=== PATIENT | male | born 1975 | race Caucasian/White ===

== ENCOUNTER → 2016-08-29 | Outpatient (CLI) | payer MEDICARE, OTHER ==
--- NOTE | 2016-08-29 15:32 | PN ---
This is a 41-year-old male patient with known history of obstructive sleep apnea coming in for a follow-up. The patient was diagnosed having severe CHARITO with an AHI of 47 and currently he is on CPAP pressure of 11 cm of water. He is doing well. His compliance for most of the time with exception of certain nights where he falls asleep while watching TV in the living room and he fails to put on his CPAP machine. I reviewed his compliance data over the past 180 days. Days with the device usages is 149, days without the device usage is 31 and percent days with device usage is 82%. He is averaging around 5 hours and 43 minutes of CPAP use every the night. CPAP use for more than 4 hours is 65%. He is using a nose mask. He is still somewhat sleepy during the day and he is on Provigil. [place] score today is 17. No recent weight gain or weight loss. No seizure activity has been noted. No other complaints otherwise. Current vitals: His blood pressure is 117/73, pulse 88, respirations 16, weight is 236. GENERAL APPEARANCE: Calm, comfortable. No acute distress. HEENT: Mallampati class IV. There is no goiter, neck masses. LUNGS: Clear to auscultation. HEART: Heart sounds are regular rate and rhythm. Normal S1, S2. ABDOMEN: Soft, nontender. No organomegaly. EXTREMITIES: No edema. No cyanosis or clubbing. IMPRESSION: 1. Sleep apnea, a combination of obstructive and central, maintained on a CPAP pressure of 11 cm of water, baseline apnea-hypopnea index is at 47. 2. Hypersomnia secondary to above treated with CPAP therapy and Provigil. 3. Obesity. 4. Epilepsy. 5. Cerebral palsy. PLAN: Will ask the patient to become more compliant with CPAP therapy. I would like to see him using his CPAP more than 4 hours for most of the time. His percentage for CPAP use for more than 4 hours at 65% at this point and would like to see this value going up to 80 or 90%. Encourage weight loss and maintaining good sleep hygiene measures. Refilled his CPAP supplies and see me back in a year's time in follow-up.
== END | disposition home or self-care (01) ==
LOC: SLEEP 11:30
PROVIDERS: ATTEND Internal Medicine Critical Care Medicine

== ENCOUNTER → 2016-10-30 | Outpatient (CLI) | payer MEDICARE, OTHER ==
--- NOTE | 2016-10-30 13:37 | MR ---
MR lumbar spine wo con dorsalgia, pain in lower back Multiplanar, multiecho imaging of the lumbar spine was obtained without contrast on a 3 Inna magnet. REFERENCE:None. FINDINGS: There is an 7 mm high signal lesion on T2 weighted imaging in the lower pole of the left h ip. Paraspinal soft tissues are otherwise normal. There is a mild retrograde listhesis of L4 on L5. Bony alignment is otherwise normal. Cord signal is normal. The conus ends normally at the level of the mid body of L1. At T12-L1, no definite abnormality is seen. At L1-2, there is mild hypertrophic change and capsulitis within the facets. At L2-3, there is mild hypertrophic change and capsulitis within the facets. At L3-4, there is a minimal, diffuse disc displacement. Intervertebral foramina are well maintained. There is mild hypertrophic change and capsulitis within the facets. At L4-5, there is a retrograde listhesis of L4-L5. There is a broad-based disc displacement superimpo sed upon a pseudodisc. The intervertebral foramina are well maintained. There is hypertrophic change and capsulitis within the facets. At L5-S1, there is mild hypertrophic changes within the facets. IMPRESSION: 1. MILD, DIFFUSE FACET ARTHROPATHY. 2. DEGENERATIVE DISC DISEASE, L4-5. 3. NO SIGNIFICANT COMPRESSIVE DISCOPATHY OR NEURAL COMPRESSION.
== END | disposition home or self-care (01) ==
LOC: RADMRIMAIN 12:01
PROVIDERS: ATTEND Family Medicine
DX: M51.36 Other intervertebral disc degeneration, lumbar region (principal); M46.96 Unspecified inflammatory spondylopathy, lumbar region
CPT/HCPCS: 72148

== ENCOUNTER → 2017-01-09 | Outpatient (CLI) | payer MEDICARE, OTHER ==
--- NOTE | 2017-01-10 07:44 | PN ---
This patient is doing well, coming in for a compliancy check regarding obstructive sleep apnea. He was an AHI of 47. He is on CPAP pressure 11 cm water. Takes Provigil 200 mg for residual hypersomnia on a daily basis. Doing well. No specific complaints. I noticed a drop in his overall CPAP average use time and he is down to 4 hours and 4 minutes over the past 30 days. He needs to be a bit more compliant. Provigil needs to be renewed. He is using a nose mask. He is still essentially the same with some degree of sleepiness during the day. His current [place] score is at 7. No other new complaints otherwise for now. BP is 120/78. Pulse 72. Respiratory rate 16. Temperature 97.7. BMI 37.2, weight 238. Height is 5 feet 7 inches. General appearance, calm, comfortable. HEENT: Negative for JVD, no goiter. No neck masses. Lungs clear to auscultation. Heart sounds regular rate and rhythm. Normal S1, S2. No S3, no murmurs. Abdomen soft. Nontender. No organomegaly. Extremities no cyanosis, clubbing or edema. IMPRESSION: 1. Obstructive sleep apnea, combination of obstructive and central, ( ) level, based on AHI of 47. The patient is on good treatment although he needs to improve his compliance and his average CPAP use. 2. Hypersomnia, currently on CPAP and the patient takes Provigil for residual hypersomnia that occurs during the day. 3. Epilepsy. 4. Cerebral palsy. 5. Obesity. PLAN: 1. Encourage weight loss. 2. Proceed with the same CPAP at same level of pressure which is 11 cm water. 3. Proceed with Provigil 200 mg po daily and this will be renewed. We will continue to follow [facility]
== END ==
LOC: SLEEP 15:04
PROVIDERS: ATTEND Internal Medicine Critical Care Medicine
DX: G47.33 Obstructive sleep apnea (adult) (pediatric) (principal); G47.10 Hypersomnia, unspecified; E66.9 Obesity, unspecified; G40.909 Epilepsy, unspecified, not intractable, without status epilepticus; G80.9 Cerebral palsy, unspecified

== ENCOUNTER 2017-05-29 09:25 | Emergency (ER) | payer MEDICARE, OTHER ==
[2017-05-29 09:38] VITALS: RESP 18
--- NOTE | 2017-05-29 10:18 | ED ---
General Adult HPI - General Chief complaint: Neuro Symptoms/Deficit Stated complaint: Legs are weak Time Seen by Provider: 05/29/17 09:40 Source: patient, family, RN notes reviewed, old records reviewed Mode of arrival: wheelchair Limitations: no limitations - History of Present Illness Initial comments: 41-year-old male history of cerebral palsy, epilepsy status post craniotomy, and sleep apnea presents with acute onset bilateral lower extremity weakness. Symptoms began at approximately 8 AM while patient was exiting a vehicle, denies trauma. Patient lowered himself back into the vehicle, there was no injury. Patient does have residual left-sided weakness from his cerebral palsy. He has contracture of the left upper extremity. Patient normally is able to ambulate. Symptoms of weakness are present in both lower extremities. Denies any recent medication changes. Patient denies current chest pain or shortness of breath. Denies headache. Denies lightheadedness or dizziness. Denies fever or chills. Denies back pain. Denies bowel or bladder incontinence. - Related Data Home Medications Medication Instructions Recorded Confirmed Doxycycline Hyclate [Vibramycin] 100 mg PO BID 02/16/15 05/29/17 Omeprazole 40 mg PO AC-BRKFST 02/16/15 05/29/17 Sertraline HCl [Zoloft] 200 mg PO HS 02/16/15 05/29/17 lamoTRIgine [LaMICtal] 400 mg PO BID 02/16/15 05/29/17 Ferrous Sulfate [Feosol] 325 mg PO DAILY 05/29/17 05/29/17 HYDROcodone/APAP 5-325MG [[place] 1 tab PO Q6HR PRN 05/29/17 05/29/17 5-325] Ketoconazole 2% Shampoo [Nizoral] 1 applic TOPICAL HS 05/29/17 05/29/17 Lacosamide [Vimpat] 150 mg PO BID 05/29/17 05/29/17 Modafinil [Provigil] 100 mg PO BID 05/29/17 05/29/17 Mupirocin [Mupirocin 2%] 1 applic TOPICAL DAILY 05/29/17 05/29/17 Triamcinolone 0.1% Lotion [Kenalog 1 applic TOPICAL BID 05/29/17 05/29/17 0.1% Lotion] Allergies Allergy/AdvReac Type Severity Reaction Status Date / Time vancomycin Allergy Rash/Hives Verified 05/29/17 10:04 meclizine HCl [From Antivert] AdvReac SEIZURE Verified 05/29/17 10:04 naproxen [From Naprosyn] AdvReac SEIZURE Verified 05/29/17 10:04 Review of Systems ROS Statement: Those systems with pertinent positive or pertinent negative responses have been documented in the HPI. ROS Other: All systems not noted in ROS Statement are negative. Past Medical History Past Medical History: Seizure Disorder, Sleep Apnea/CPAP/BIPAP Additional Past Medical History / Comment(s): CP History of Any Multi-Drug Resistant Organisms: None Reported Past Surgical History: Hernia Repair Past Psychological History: No Psychological Hx Reported Smoking Status: Never smoker Past Alcohol Use History: None Reported Past Drug Use History: None Reported General Exam Limitations: no limitations General appearance: alert, in no apparent distress Head exam: Present: normocephalic, other (Right-sided parietal craniotomy.) Eye exam: Present: normal appearance, PERRL, EOMI ENT exam: Present: normal exam Neck exam: Present: normal inspection, tenderness Respiratory exam: Present: normal lung sounds bilaterally. Absent: respiratory distress Cardiovascular Exam: Present: regular rate, normal rhythm GI/Abdominal exam: Present: soft, distended. Absent: tenderness, guarding Rectal exam: Present: normal inspection, normal rectal tone Extremities exam: Present: other (Left lower extremity, with muscle wasting, bilateral distal pulses intact, patient is able to move both feet, unable to lift either lower extremity against gravity. Reflexes are 2+ and symmetric. Sensation Intact. ). Absent: tenderness, pedal edema, joint swelling Back exam: Present: normal inspection. Absent: tenderness, vertebral tenderness Neurological exam: Present: alert, oriented X3, other (Bilateral lower extremity weakness, unable to resist gravity in either lower extremities. ) Psychiatric exam: Present: normal affect, normal mood Skin exam: Present: warm, dry, intact. Absent: cyanosis, diaphoretic Course Vital Signs 05/29/17 05/29/17 05/29/17 09:34 09:58 11:00 Temperature 98.3 F Pulse Rate 92 88 88 Respiratory 18 18 18 Rate Blood Pressure 117/79 126/66 128/73 O2 Sat by Pulse 94 L 98 96 Oximetry 05/29/17 05/29/17 11:28 12:20 Temperature Pulse Rate 77 74 Respiratory 18 18 Rate Blood Pressure 120/74 122/75 O2 Sat by Pulse 98 98 Oximetry - Reevaluation(s) Reevaluation #1: 05/29/17 12:59 Emergency Department patient does have some improvement in his symptoms, he is able to minimally elevated bilateral lower extremities. EKG Findings - EKG Comments: EKG Findings:: EKG shows normal sinus rhythm, ventricular rate 93, FL 178, castration 12, QTC 467 no signs of ischemia or arrhythmia Medical Decision Making - Medical Decision Making 41-year-old male with history cerebral palsy and residual left-sided deficits presents for evaluation of bilateral lower extremity weakness. On exam patient is unable to lift either lower extremity off the bed, sensation appears intact, reflexes at the patella are 2+ bilaterally, no rectal tone intact. Symptoms began at approximately 8 AM this morning. Head CT is obtained, this is negative for acute intracranial process, there is right-sided stable encephalomalacia. Chest x-ray shows no acute findings. CBC is unremarkable including normal white blood cell count, hemoglobin stable. CMP and troponin are all unremarkable. Case is discussed with the patient's neurologist at [facility] Dr. Randhawa, history and exam concerning for spinal cord pathology. He recommends protocol cord imaging. Exam and history discussed with neurology on-call at [facility] Dr. Villatoro, he agrees is likely spinal cord issue, recommends Solu- Medrol and transfer for neurology and neurosurgery evaluation. Given the patient's neurologist practices at [facility], patient will be transferred for further neurology and possible neurosurgical evaluation. Diagnosis: Bilateral lower extremity weakness, concern for spinal cord pathology including spinal cord infarction versus transverse myelitis. - Lab Data Result diagrams: 05/29/17 09:57 05/29/17 09:57 Lab Results 05/29/17 05/29/17 05/29/17 Range/Units 09:57 09:57 09:57 WBC 6.0 (3.8-10.6) k/uL RBC 5.19 (4.30-5.90) m/uL Hgb 14.0 (13.0-17.5) gm/dL Hct 44.0 (39.0-53.0) % MCV 84.7 (80.0-100.0) fL MCH 27.1 (25.0-35.0) pg MCHC 31.9 (31.0-37.0) g/dL RDW 15.4 (11.5-15.5) % Plt Count 182 (150-450) k/uL Neutrophils % 77 % Lymphocytes % 16 % Monocytes % 3 % Eosinophils % 2 % Basophils % 1 % Neutrophils # 4.6 (1.3-7.7) k/uL Lymphocytes # 1.0 (1.0-4.8) k/uL Monocytes # 0.2 (0-1.0) k/uL Eosinophils # 0.1 (0-0.7) k/uL Basophils # 0.0 (0-0.2) k/uL PT (9.0-12.0) sec INR (<1.2) APTT (22.0-30.0) sec Sodium 141 (137-145) mmol/L Potassium 3.8 (3.5-5.1) mmol/L Chloride 105 (98-107) mmol/L Carbon Dioxide 25 (22-30) mmol/L Anion Gap 11 mmol/L BUN 12 (9-20) mg/dL Creatinine 0.93 (0.66-1.25) mg/dL Est GFR (MDRD) Af Amer >60 (>60 ml/min/1.73 sqM) Est GFR (MDRD) Non-Af >60 (>60 ml/min/1.73 sqM) Glucose 124 H (74-99) mg/dL Calcium 9.6 (8.4-10.2) mg/dL Total Bilirubin 0.4 (0.2-1.3) mg/dL AST 18 (17-59) U/L ALT 31 (21-72) U/L Alkaline Phosphatase 64 (38-126) U/L Total Creatine Kinase 47 L (55-170) U/L CK-MB (CK-2) 0.8 (0.0-2.4) ng/mL CK-MB (CK-2) Rel Index 1.7 Troponin I <0.012 (0.000-0.034) ng/mL Total Protein 7.0 (6.3-8.2) g/dL Albumin 4.3 (3.5-5.0) g/dL 05/29/17 Range/Units 09:57 WBC (3.8-10.6) k/uL RBC (4.30-5.90) m/uL Hgb (13.0-17.5) gm/dL Hct (39.0-53.0) % MCV (80.0-100.0) fL MCH (25.0-35.0) pg MCHC (31.0-37.0) g/dL RDW (11.5-15.5) % Plt Count (150-450) k/uL Neutrophils % % Lymphocytes % % Monocytes % % Eosinophils % % Basophils % % Neutrophils # (1.3-7.7) k/uL Lymphocytes # (1.0-4.8) k/uL Monocytes # (0-1.0) k/uL Eosinophils # (0-0.7) k/uL Basophils # (0-0.2) k/uL PT 10.4 (9.0-12.0) sec INR 1.1 (<1.2) APTT 22.0 (22.0-30.0) sec Sodium (137-145) mmol/L Potassium (3.5-5.1) mmol/L Chloride (98-107) mmol/L Carbon Dioxide (22-30) mmol/L Anion Gap mmol/L BUN (9-20) mg/dL Creatinine (0.66-1.25) mg/dL Est GFR (MDRD) Af Amer (>60 ml/min/1.73 sqM) Est GFR (MDRD) Non-Af (>60 ml/min/1.73 sqM) Glucose (74-99) mg/dL Calcium (8.4-10.2) mg/dL Total Bilirubin (0.2-1.3) mg/dL AST (17-59) U/L ALT (21-72) U/L Alkaline Phosphatase (38-126) U/L Total Creatine Kinase (55-170) U/L CK-MB (CK-2) (0.0-2.4) ng/mL CK-MB (CK-2) Rel Index Troponin I (0.000-0.034) ng/mL Total Protein (6.3-8.2) g/dL Albumin (3.5-5.0) g/dL Critical Care Time Critical Care Time: Yes Total Critical Care Time: 35 Disposition Clinical Impression: Bilateral leg weakness Disposition: OTHER INSTITUTION NOT DEFINED Condition: Serious Referrals: Jose Enciso MD [Primary Care Provider] - 1-2 days Time of Disposition: 13:06 - Out of Hospital Transfer - Req. Specs Out of Hospital Transfer - Requested Specifics: Other Non-Acute (Transfer to [facility] accepting physician Dr. Montano)
[2017-05-29 10:30] LABS: Basophils % (A) 1 %; CH 28.5; CHCM 33.8; Eosinophils # (A) 0.1 k/uL (0-0.7); Eosinophils % (A) 2 %; HDW 2.75; Luc # (Auto) 0.03; Luc % (Auto) 1; Lymphocytes % (A) 16 %; MCH 27.1 pg (25.0-35.0); MCHC 31.9 g/dL (31.0-37.0); MCV 84.7 fL (80.0-100.0); Mean Platelet Volume 7.2; Monocytes # (A) 0.2 k/uL (0-1.0); Monocytes % (A) 3 %; Neutrophils # (A) 4.6 k/uL (1.3-7.7); Neutrophils % (A) 77 %; RBC 5.19 m/uL (4.30-5.90); RDW 15.4 % (11.5-15.5); WBC (Perox) 6.15
[2017-05-29 10:46] LABS: ALT 31 U/L (21-72); AST 18 U/L (17-59); Alkaline Phosphatase 64 U/L (38-126); Anion Gap 11 mmol/L; Blood Urea Nitrogen 12 mg/dL (9-20); Calcium 9.6 mg/dL (8.4-10.2); Carbon Dioxide 25 mmol/L (22-30); Chloride 105 mmol/L (98-107); Glucose 124 mg/dL (74-99); INR 1.1 (<1.2); Non-African American GFR(MDRD) >60 (>60 ml/min/1.73 sqM); Potassium 3.8 mmol/L (3.5-5.1); Prothrombin Time 10.4 sec (9.0-12.0); Sodium 141 mmol/L (137-145); Total Bilirubin 0.4 mg/dL (0.2-1.3)
--- NOTE | 2017-05-29 10:50 | XR ---
EXAMINATION TYPE: XR chest 2V DATE OF EXAM: 05/29/2017 COMPARISON: 02/16/2015 HISTORY: Chest pain TECHNIQUE: Frontal and lateral views of the chest are obtained. FINDINGS: There is no focal air space opacity. No evidence for pneumothorax. No pleural effusion. The cardiac silhouette size is within normal limits. The osseous structures are grossly intact. IMPRESSION: 1. No acute cardiopulmonary process.
--- NOTE | 2017-05-29 10:56 | CT ---
EXAMINATION TYPE: CT brain wo con DATE OF EXAM: 05/29/2017 COMPARISON: 02/16/2015 INDICATION: Bilateral leg weakness. History of epilepsy DLP: 1047.1 mGycm, Automated exposure control for dose reduction was used. CONTRAST: None CT of the brain is performed utilizing 3 mm thick sections through the posterior fossa and 3 mm thick sections through the remaining calvarium. Study is performed within 24 hours of arrival to the hosp ital. No abnormal hyperdensity is present to suggest an acute intracranial hemorrhage. No mass lesion is evident. No acute infarcts are evident. There is mucosal thickening within the right frontal sinus. Some anterior right ethmoid air cell muco cornelius thickening is present. Some scattered areas of mucosal thickening is within the mid posterior rig ht ethmoid air cells. Sphenoid sinuses are clear. Maxillary sinuses within the [id number] are cedric r. Craniotomy defect along the right temporal parietal region. Ex vacuo effect is evident. There is ence phalomalacia on the right. There is prominence of the ventricles with mild shift towards the right du e to exvacuo effect. Hydrocephalus is not evident. Sulci appear appropriate for the patient age. Find ings are stable from 2015 IMPRESSIONS: 1. Stable right encephalomalacia and postsurgical change.
[2017-05-29 10:58] LABS: Creatine Kinase 47 U/L (55-170)
[2017-05-29 11:12] LABS: Creatine Kinase MB 0.8 ng/mL (0.0-2.4); Troponin I <0.012 ng/mL (0.000-0.034)
[2017-05-29] MEDS ORDERED: methylPREDNISolone SOD SUCCI 125 MG/2 ML VIAL IV STA (12:41)
[2017-05-29 13:32] VITALS: BP 132/72; PULSE 83; TEMP 98.6
== END 2017-05-29 13:38 | disposition other institution (70) ==
LOC: EC 09:25
DX: R53.1 Weakness (principal); G47.30 Sleep apnea, unspecified; Z99.89 Dependence on other enabling machines and devices; Z98.890 Other specified postprocedural states; Z79.899 Other long term (current) drug therapy; Z88.1 Allergy status to other antibiotic agents; Z88.6 Allergy status to analgesic agent; Z88.8 Allergy status to other drugs, medicaments and biological substances; Z86.69 Personal history of other diseases of the nervous system and sense organs
CPT/HCPCS: 36415; 93005; 80053; 82550; 82553; 84484; 85025; 85610; 85730; 71020; 70450; 99291; 96374; J2930

== ENCOUNTER → 2017-08-21 | Outpatient (CLI) | payer MEDICARE, OTHER ==
--- NOTE | 2017-08-21 15:34 | PN ---
PROGRESS NOTE This is a 42-year-old male patient is being seen [facility] for a followup regarding obstructive sleep apnea. The patient is currently on CPAP pressure of 11 cm of water. He has severe CHARITO with an AHI of 47. He also takes Provigil 200 mg for residual hypersomnia sleep despite being compliant with CPAP therapy. During his last visit I saw the patient's compliance was gradually getting worse and I insisted on him wearing his CPAP every night for longer number of hours. I came to understand his interim history is positive for an episode of weakness in lower extremities for which the patient came to [facility] and following that, he was taken to [facility] and was diagnosed having a TIA. CT scan of the brain showed old CVA and CT angio of the brain showed evidence of encephalomalacia and occlusion of the artery is within the right cerebral hemisphere which was chronic. No acute findings were identified. The patient did not have any seizure and he was discharged home. During this time, he was not wearing his CPAP machine. Now that he is back home he is back using his CPAP and is averaging around 4 hours and 42 minutes of CPAP use every night. He has a Mirage FX nose mask. He is doing well on the treatment. His [place] score is down to 7. No recent weight gain or weight loss. Denies waking up in the middle of night for snoring or any apneic episodes. He is taking also Provigil 200 mg in the morning which assists him with his alertness and he has taken much less naps while on this treatment. REVIEW OF SYSTEMS: Constitution is chronic hypersomnia which is improved. Obesity without any history of weight gain or weight loss. History of cerebral palsy and previous history of CVA. No history of any active seizure. No headaches. No altered mentation. No chest pain. No palpitations. No cough, sputum production, chest tightness, SOB. No exertional dyspnea. No nausea, vomiting or diarrhea or heartburn. No palpitations. No joint aches or pains for now. No falls, no skeletal injuries. No skin rash. No ulcerations or wounds. No anxiety or depression. PHYSICAL EXAMINATION: BP is 123/78, pulse is 89, respirations 16, temperature 98.5, saturation 94% on room air and weight is 245. BMI 37.6. [place] score is 14. GENERAL APPEARANCE: Obese, calm, comfortable. HEAD: Atraumatic, normocephalic. NECK: Supple. No JVD. No goiter or neck mass. Mallampati class IV. LUNGS: Diminished breath sounds bilaterally, otherwise clear. HEART: Sounds are regular. Positive S1, S2. No S3, S4. No murmurs. ABDOMEN: Soft, nontender. No organomegaly. EXTREMITIES: No edema. No cyanosis. No clubbing. NEUROLOGIC: The patient is alert and oriented x3. He has obvious weakness on the left related to a previous CVA. Some degree of facial asymmetry which is also chronic. SKIN: Negative for any wounds, ulcerations or any cyanosis. IMPRESSION: 1. Obstructive sleep apnea severe with an AHI of 47, currently on CPAP pressure of 11. 2. Hypersomnia improved with CPAP therapy and Provigil. 3. There is improved compliancy on CPAP treatment. 4. Cerebral palsy. 5. Epilepsy. 6. Obesity with a current BMI of 37.6. PLAN: 1. Encourage weight loss. 2. Refill Provigil. 3. Continue CPAP pressure of 11. 4. Keep the patient on Mirage FX nose mask. 5. Tight control of cardiovascular risk factors. 6. Compliance is improved. We will continue to follow. MMODL / IJN: [id number] /
== END ==
LOC: SLEEP 13:23
PROVIDERS: ATTEND Internal Medicine Critical Care Medicine
DX: G47.33 Obstructive sleep apnea (adult) (pediatric) (principal); G47.10 Hypersomnia, unspecified; G80.9 Cerebral palsy, unspecified; G40.909 Epilepsy, unspecified, not intractable, without status epilepticus; E66.9 Obesity, unspecified; Z68.37 Body mass index [BMI] 37.0-37.9, adult; Z99.89 Dependence on other enabling machines and devices; Z79.899 Other long term (current) drug therapy

== ENCOUNTER 2018-04-27 16:00 | Inpatient (IN) | payer MEDICARE, OTHER ==
--- NOTE | 2018-04-27 16:17 | ED ---
General Adult HPI - General Stated complaint: Seizure Time Seen by Provider: 04/27/18 16:01 Source: patient, family, EMS, RN notes reviewed, old records reviewed Mode of arrival: EMS Limitations: no limitations - History of Present Illness Initial comments: Patient is a pleasant 42-year-old male presenting to the emergency department with family for concern for weakness and seizure. Patient does have history of cerebral palsy and severe epilepsy. Patient had 37% of the right side of his brain removed for 5 years ago. Patient rarely gets seizures now. Last seizure was February. Patient did have a seizure prior to arrival today with tonic- clonic activity limited to the left side. Patient states this lasted around 3 minutes. Patient did have some odd sensation to his left side following this. Patient has also noticed some weakness on his left side. Patient states he does have normally have some left arm weakness however this is worse than normal. - Related Data Home Medications Medication Instructions Recorded Confirmed Doxycycline Hyclate [Vibramycin] 100 mg PO BID 02/16/15 04/27/18 Omeprazole 40 mg PO AC-BRKFST 02/16/15 04/27/18 Sertraline HCl [Zoloft] 200 mg PO HS 02/16/15 04/27/18 lamoTRIgine [LaMICtal] 400 mg PO BID 02/16/15 04/27/18 HYDROcodone/APAP 5-325MG [[place] 1 tab PO DAILY PRN 05/29/17 04/27/18 5-325] Lacosamide [Vimpat] 150 mg PO BID 05/29/17 04/27/18 Modafinil [Provigil] 200 mg PO BID 05/29/17 04/27/18 Triamcinolone 0.1% Lotion [Kenalog 1 applic TOPICAL BID 05/29/17 04/27/18 0.1% Lotion] Allergies Allergy/AdvReac Type Severity Reaction Status Date / Time vancomycin Allergy Rash/Hives Verified 04/27/18 16:06 meclizine HCl [From Antivert] AdvReac SEIZURE Verified 04/27/18 16:06 naproxen [From Naprosyn] AdvReac SEIZURE Verified 04/27/18 16:06 Review of Systems ROS Statement: Those systems with pertinent positive or pertinent negative responses have been documented in the HPI. ROS Other: All systems not noted in ROS Statement are negative. Constitutional: Denies: fever Eyes: Denies: eye pain ENT: Denies: ear pain Respiratory: Denies: cough Cardiovascular: Denies: chest pain Endocrine: Denies: fatigue Gastrointestinal: Denies: abdominal pain Genitourinary: Denies: dysuria Musculoskeletal: Denies: back pain Skin: Denies: rash Neurological: Denies: headache Past Medical History Past Medical History: Seizure Disorder, Sleep Apnea/CPAP/BIPAP Additional Past Medical History / Comment(s): CP History of Any Multi-Drug Resistant Organisms: None Reported Past Surgical History: Hernia Repair Past Psychological History: No Psychological Hx Reported Smoking Status: Never smoker Past Alcohol Use History: None Reported Past Drug Use History: None Reported General Exam Limitations: physical limitation General appearance: alert, in no apparent distress Head exam: Present: atraumatic Eye exam: Present: normal appearance, PERRL, EOMI ENT exam: Present: normal oropharynx Neck exam: Present: normal inspection Respiratory exam: Present: normal lung sounds bilaterally Cardiovascular Exam: Present: regular rate, normal rhythm GI/Abdominal exam: Present: soft. Absent: tenderness Extremities exam: Present: normal inspection. Absent: pedal edema, calf tenderness Neurological exam: Present: alert, oriented X3, CN II-XII intact Expanded Neurological exam: Present: protecting the airway Patient oriented to: Present: person, place, time Cranial nerves: EOM's Intact: Normal, Facial Sensation: Normal Sensory exam: Upper Extremity Light Touch: Normal, Lower Extremity Light Touch: Normal Motor strength exam: RUE: 5, LUE: 2/1, RLE: 4, LLE: 3 Eye Response: (4) open spontaneously Motor Response: (6) obeys commands Verbal Response: (5) oriented Psychiatric exam: Present: normal affect, normal mood Skin exam: Present: normal color Course Vital Signs 04/27/18 16:06 Temperature 98.6 F Pulse Rate 87 Respiratory 20 Rate Blood Pressure 132/83 O2 Sat by Pulse 96 Oximetry EKG Findings - EKG Comments: EKG Findings:: Normal sinus rhythm 78. ND 170. QRS 96. QT 388. QTC 442. Normal axis. Normal QRS. No acute ST change. Medical Decision Making - Medical Decision Making Neural interventional list did call back and does not patient is a candidate for TPA. Patient reevaluated and updated. Case discussed in detail with Dr. Perez, who will admit for Dr. Enciso. - Lab Data Result diagrams: 04/27/18 16:24 04/27/18 16:24 Lab Results 04/27/18 04/27/18 04/27/18 Range/Units 16:24 16:24 16:24 WBC 6.0 (3.8-10.6) k/uL RBC 5.30 (4.30-5.90) m/uL Hgb 14.4 (13.0-17.5) gm/dL Hct 43.6 (39.0-53.0) % MCV 82.3 (80.0-100.0) fL MCH 27.2 (25.0-35.0) pg MCHC 33.0 (31.0-37.0) g/dL RDW 13.8 (11.5-15.5) % Plt Count 177 (150-450) k/uL Neutrophils % 75 % Lymphocytes % 17 % Monocytes % 4 % Eosinophils % 2 % Basophils % 1 % Neutrophils # 4.4 (1.3-7.7) k/uL Lymphocytes # 1.0 (1.0-4.8) k/uL Monocytes # 0.3 (0-1.0) k/uL Eosinophils # 0.1 (0-0.7) k/uL Basophils # 0.0 (0-0.2) k/uL Sodium 141 (137-145) mmol/L Potassium 4.4 (3.5-5.1) mmol/L Chloride 108 H (98-107) mmol/L Carbon Dioxide 21 L (22-30) mmol/L Anion Gap 12 mmol/L BUN 16 (9-20) mg/dL Creatinine 0.94 (0.66-1.25) mg/dL Est GFR (CKD-EPI)AfAm >90 (>60 ml/min/1.73 sqM) Est GFR (CKD-EPI)NonAf >90 (>60 ml/min/1.73 sqM) Glucose 95 (74-99) mg/dL Calcium 9.3 (8.4-10.2) mg/dL Total Bilirubin 0.5 (0.2-1.3) mg/dL AST 18 (17-59) U/L ALT 18 L (21-72) U/L Alkaline Phosphatase 58 (38-126) U/L Total Creatine Kinase 30 L (55-170) U/L Total Protein 7.2 (6.3-8.2) g/dL Albumin 4.5 (3.5-5.0) g/dL - Radiology Data Radiology results: report reviewed (Computed tomography scan of the brain reveals chronic right-sided changes without acute intercranial process.) Disposition Clinical Impression: Left-sided weakness Disposition: ADMITTED IP TO THIS HOSP Is patient prescribed a controlled substance at d/c from ED?: No Referrals: Jose Enciso MD [Primary Care Provider] - 1-2 days Decision Time: 16:58
[2018-04-27 16:41] LABS: Basophils % (A) 1 %; Eosinophils # (A) 0.1 k/uL (0-0.7); Eosinophils % (A) 2 %; HCT 43.6 % (39.0-53.0); HGB 14.4 gm/dL (13.0-17.5); Lymphocytes % (A) 17 %; MCH 27.2 pg (25.0-35.0); MCV 82.3 fL (80.0-100.0); Mean Platelet Volume 6.7; Monocytes # (A) 0.3 k/uL (0-1.0); Monocytes % (A) 4 %; Neutrophils # (A) 4.4 k/uL (1.3-7.7); Neutrophils % (A) 75 %; Platelet Count 177 k/uL (150-450); RDW 13.8 % (11.5-15.5)
[2018-04-27 16:50] LABS: Creatine Kinase 30 U/L (55-170)
--- NOTE | 2018-04-27 16:51 | CT ---
EXAMINATION TYPE: CT brain wo con for TPA DATE OF EXAM: 04/27/2018 COMPARISON: 05/29/2017 HISTORY: History of cerebral palsy and seizures. Unable to move left arm or leg after seizure. CT DLP: 1177 mGycm Automated exposure control for dose reduction was used. FINDINGS: Again there is a craniotomy defect along the right temporal parietal region with near complete enceph alomalacia of the right hemisphere with only portions of the right temporal lobe and cranial frontal parietal region preserved. The degree of midline shift is unchanged from the prior, left to right, du e to volume loss of the right hemisphere. Ventricular system on the right is severely dilated and ill -defined. Left-sided ventricular system is similar to the prior. Left cerebral hemisphere and infrate ntorial are stable in comparison to the prior. No acute intracranial hemorrhage seen. Moderate mucosal thickening of the ethmoid sinuses and within the frontal sinuses are seen. Remaining paranasal sinuses and mastoid air cells are well aerated. IMPRESSION: Extensive encephalomalacia and ex vacuo dilatation of the right lateral ventricle with [id number] midline shift due to volume loss is unchanged from the exam of 05/29/2017. No acute intracranial proc ess or intracranial hemorrhage.
[2018-04-27 16:52] LABS: ALT 18 U/L (21-72); AST 18 U/L (17-59); Albumin 4.5 g/dL (3.5-5.0); Alkaline Phosphatase 58 U/L (38-126); Anion Gap 12 mmol/L; Blood Urea Nitrogen 16 mg/dL (9-20); Calcium 9.3 mg/dL (8.4-10.2); Carbon Dioxide 21 mmol/L (22-30); Chloride 108 mmol/L (98-107); Glucose 95 mg/dL (74-99); Potassium 4.4 mmol/L (3.5-5.1); Sodium 141 mmol/L (137-145); Total Bilirubin 0.5 mg/dL (0.2-1.3); Total Protein 7.2 g/dL (6.3-8.2)
[2018-04-27] MEDS ORDERED: ASPIRIN 325 MG TAB PO STA (16:59)
[2018-04-27 17:02] LABS: Creatine Kinase MB 0.3 ng/mL (0.0-2.4); Troponin I <0.012 ng/mL (0.000-0.034)
[2018-04-27 17:06] LABS: INR 1.1 (<1.2); Partial Thromboplastin Time 25.9 sec (22.0-30.0); Prothrombin Time 10.4 sec (9.0-12.0)
[2018-04-27] MEDS: SODIUM CHLORIDE 0.9% 1,000 ML IV SCH (17:29)
--- NOTE | 2018-04-27 17:37 | CT ---
EXAMINATION TYPE: CT angio head neck DATE OF EXAM: 04/27/2018 HISTORY: History of cerebral palsy and seizures. Unable to move left arm or leg after seizure. COMPARISON: CT brain of the same date CT DLP: 499.3 mGycm. Automated Exposure Control for Dose Reduction was Utilized. TECHNIQUE: CTA scan of the neck is performed with IV Contrast, patient injected with 65 mL of Isovue 370, axial images are obtained, coronal and sagittal reformatted images are reviewed. Three-D recons tructed images are created on an independent workstation and reviewed. FINDINGS: Carotid/Vascular Structures: There is a normal variant bovine aortic arch. The common carotid arterie s and cervical portions of the internal carotid arteries are patent without hemodynamically significa nt stenosis. The vertebral arteries are also patent. Right vertebral artery is dominant. There is occlusion of the branch vessels of the right middle cerebral artery from prior infarct and r ight posterior cerebral artery as well as posterior communicating artery. On the left the posterior c irculation and left middle cerebral artery as well as left anterior cerebral artery and right anterio r cerebral artery are patent and unremarkable. No evidence of intracranial aneurysm. No evidence of d issection. Other: Visualized portion of the brain are discussed in the CT brain dictation of the same date. Inci dental note of an azygos fissure and lobe are seen. Groundglass opacities of the lung apices may be o n the basis of fluid overload, pneumonitis or atelectasis. The thyroid gland appears enlarged. There is straightening of the usual cervical lordosis and slight reversal. IMPRESSION: 1. Occlusion of the right posterior cerebral artery and branch vessels of the right middle cerebral a rtery are assumed to be chronic given the extensive right hemispheric encephalomalacia from prior inf arct. Right anterior cerebral artery and left intracranial circulation are unremarkable. No stenosis, occlusion or dissection of the vasculature of the neck. 2. Multifocal groundglass opacities in the lung apices may relate to fluid overload, pneumonitis or a telectasis.
--- NOTE | 2018-04-27 17:39 | XR ---
EXAMINATION TYPE: XR chest 2V DATE OF EXAM: 04/27/2018 COMPARISON: 05/29/2017 HISTORY: Seizure and left-sided weakness and altered mental status. TECHNIQUE: Frontal and lateral views of the chest are obtained. FINDINGS: There is no focal air space opacity, pleural effusion, or pneumothorax seen. The cardiac silhouette size is upper limits of normal. The osseous structures are intact. IMPRESSION: No acute cardiopulmonary process, unchanged from the prior.
[2018-04-27 19:52] VITALS: BMI 37.3
[2018-04-27] MEDS ORDERED: NON-FORMULARY DRUG (Acetaminophen [Tylenol Arthritis] 650 MG) PO PRN (19:54)
[2018-04-27] MEDS ORDERED: HYDROcodone/APAP 5-325MG 1 EACH TAB PO PRN (19:54)
[2018-04-27] MEDS ORDERED: LACTULOSE 20 GM/30 ML CUP PO PRN (19:55)
[2018-04-27] MEDS ORDERED: ACETAMINOPHEN TAB 325 MG TAB PO PRN (19:55)
[2018-04-27] MEDS ORDERED: ONDANSETRON 4 MG/2 ML VIAL IVP PRN (19:55)
[2018-04-27] MEDS ORDERED: MAGNESIUM HYDROXIDE 2,400 MG/10 ML CUP PO PRN (19:55)
[2018-04-27] MEDS ORDERED: NALOXONE 0.4 MG/ML 1 ML VIAL IV PRN (19:55)
[2018-04-27] MEDS ORDERED: MELATONIN 3 MG TABLET PO PRN (19:55)
[2018-04-27] MEDS ORDERED: CALCIUM CARBONATE 500 MG CHEWABLE PO PRN (19:55)
[2018-04-27] MEDS ORDERED: SERTRALINE 100 MG TAB PO SCH (21:00)
[2018-04-27] MEDS: DOXYCYCLINE 100 MG CAP PO SCH (21:01)
[2018-04-27] MEDS: LACOSAMIDE 150 MG TABLET PO SCH (21:02)
[2018-04-27] MEDS: lamoTRIgine 100 MG TAB PO SCH (21:02)
[2018-04-27] MEDS: TRIAMCINOLONE 0.1% CREAM 80 GM TUBE TOPICAL SCH (21:02)
--- NOTE | 2018-04-27 21:03 | HP ---
HISTORY AND PHYSICAL DATE OF ADMISSION AND SERVICE: 04/27/18 PRESENTING COMPLAINT: Seizure. HISTORY OF PRESENTING COMPLAINT: Pleasant 42-year-old patient follows with Dr. Enciso. Patient about 10 years ago underwent about 37% of his right brain resected for intractable seizures. The patient has done rather well since then, getting occasional seizures. The patient does follow up with seizure specialist out of [place]. The patient's last seizure was on January 09. The patient today had a seizure that lasted for about 3 minutes. Normally it affects left side of the body where the patient starts shaking. The patient is typically awake and able to tell the episode. The patient may have a prodrome typically coming. The patient is brought in for the same. The patient also follows with Dr. Sen for lumbar pain. The patient's mother is present at the bedside. The patient has some baseline residual weakness on the left side, primarily in the left arm. REVIEW OF SYSTEMS: CONSTITUTIONAL: None. HEENT: None. RESPIRATORY: None. CARDIOVASCULAR: None. GASTROINTESTINAL: None. GENITOURINARY: None. MUSCULOSKELETAL: None. DERMATOLOGICAL: None. HEMATOLOGICAL: None. LYMPHATIC: None. PSYCHIATRY: Slight depression. NEUROLOGICAL: As above. PAST MEDICAL HISTORY: Seizure disorder, obstructive sleep apnea, 37% of right brain resected for surgery, lumbar L3-L5 pain for which he follows with Dr. Sen. PAST SURGICAL HISTORY: See above and hernia repair. SOCIAL HISTORY: Lives by himself. No smoking, alcohol. Denies use of recreational drugs. FAMILY HISTORY: Reviewed; noncontributory to presentation. HOME MEDICATIONS: Tylenol Arthritis 650 mg p.o. b.i.d. p.r.n., Provigil 100 mg b.i.d., [place] 5 one tablet p.o. daily p.r.n., Lamictal 400 mg b.i.d., Kenalog 0.1% topical b.i.d., Zoloft 200 mg q.h.s., omeprazole 40 mg with breakfast, Vimpat 150 mg p.o. b.i.d., doxycycline 100 mg b.i.d. ALLERGIES: To VANCO, MECLIZINE, NAPROXEN. EXAMINATION: Afebrile, pulse 87, respirations 20, blood pressure 132/82, pulse ox 96% on room air. GENERAL APPEARANCE: Well-built, BMI 37.3. Lying in bed, awake. EYES: Pupils equal. Conjunctivae normal. HEENT: External appearance of nose and ears normal. Oral cavity normal. NECK: JVD not raised. Mass not palpable. RESPIRATORY: Effort normal. Lungs are clear. CARDIOVASCULAR: 1st and 2nd sounds normal. No edema. ABDOMEN: Soft, nontender. Liver and spleen not palpable. LYMPHATIC: No lymph node palpable in neck or axillae. PSYCHIATRY: Alert and oriented x3. Mood and affect normal. The patient is able to communicate. NEUROLOGICAL: Pupils equal. Minimal facial asymmetry. Power in the left arm is 3/5, power in the left leg is 4/5. INVESTIGATIONS: White count 6, hemoglobin 14.4, platelets 177. Potassium 4.4, BUN 16, creatinine 0.94. Troponin negative. EKG tracing personally reviewed by me shows normal sinus rhythm. Chest x-ray film, personally reviewed by me shows an expiratory film, some crowding of the vessels. No obvious infiltrate. CT angio shows occlusion of the branch vessels to the right middle cerebral artery from prior infarct and right posterior cerebral artery as well as postcricoid negative artery. Left-sided is okay. ASSESSMENT: 1. Left-sided focal seizures with a prior right cerebral surgery for intractable seizure and the patient is already on antiepileptic medications. 2. 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 3. Chronic left hemiparesis, primarily of the left upper extremity from prior right- sided brain surgery. 4. Obesity; BMI 37.3. 5. Chronic lumbar arthritis, L3-L5, follows with Dr. Sen. 6. Obstructive sleep apnea uses CPAP machine. 7. Patient uses Provigil to keep awake. PLAN: Patient is put on seizure precautions and pads. Neuro checks to be done. Home medications are resumed. Neurology was consulted. Care was discussed at length with the patient and mother. Questions were answered. The patient expressed that he just wishes to follow up with Dr. Sen upon discharge with whom he sees for his back pain. MMODL / IJN: [id number] /
[2018-04-27] MEDS: ENOXAPARIN 40 MG/0.4 ML SYRINGE SQ SCH (21:08)
[2018-04-28 03:10] LABS: Cholesterol 205 mg/dL (<200); HDL Cholesterol 27 mg/dL (40-60); LDL Cholesterol,Calculated 143 mg/dL (0-99); Triglycerides 176 mg/dL (<150)
[2018-04-28] MEDS: SODIUM CHLORIDE 0.9% 1,000 ML IV SCH ×2 (03:10→11:32)
[2018-04-28] MEDS ORDERED: MODAFINIL 100 MG TAB PO SCH (06:00)
[2018-04-28] MEDS ORDERED: PANTOPRAZOLE 40 MG TABLET PO SCH (07:30)
[2018-04-28 07:59] VITALS: RESP 16
[2018-04-28] MEDS ORDERED: ASPIRIN 325 MG TAB PO SCH (09:00)
[2018-04-28] MEDS: LACOSAMIDE 150 MG TABLET PO SCH (09:29)
[2018-04-28] MEDS: lamoTRIgine 100 MG TAB PO SCH (09:29)
[2018-04-28] MEDS: TRIAMCINOLONE 0.1% CREAM 80 GM TUBE TOPICAL SCH (09:29)
[2018-04-28] MEDS: DOXYCYCLINE 100 MG CAP PO SCH (09:29)
[2018-04-28] MEDS: ENOXAPARIN 40 MG/0.4 ML SYRINGE SQ SCH (09:29)
--- NOTE | 2018-04-28 15:22 | P.CNNES ---
History of Present Illness Consult date: 04/28/18 Requesting physician: Hi Perez Reason for Consult: Weakness History of Present Illness: Patient is a pleasant 42-year-old male who is being evaluated by the neurology service on 04/28/2018 per the request of Dr. Perez for weakness. Patient has a significant seizure history for which he had undergone surgery and had 37% of his right brain resected for intractable seizures. The patient does follow with neurologist that is out of town, Dr. Alvarez. Patient states his last seizure prior to this admission was in January. Prior to January it had been 5 years since his last seizure. Patient reports that he had missed some doses of his medication which likely lead to his seizure. Patient takes Lamictal 400 mg twice a day and Vimpat 150 mg twice a day in the home setting. Patient reports he was in a restaurant when he had a seizure and it lasted for about 3 minutes. Patient was brought to [facility] for evaluation. Patient also has history of lumbar pain for which he follows with Dr. Sen. Patient also has history of cerebral palsy. Vital signs on admission showed temp 98.6, pulse 87, respiratory rate 20, blood pressure 132/83 , and oxygen saturation 96% on room air. Labs on admission showed elevated triglycerides of 176, cholesterol 205, LDL 143, and HDL 27. All of his labs essentially unremarkable. CT of the brain showed extensive encephalomalacia and ex vacuo dilatation of the right lateral ventricle with left to right midline shift due to volume loss which is unchanged from prior exam in 2017. No acute process was noted. CTA was done which showed occlusion of the right posterior cerebral artery branch vessels of the right middle cerebral artery which are similar to be chronic given the extensive right hemispheric encephalomalacia from prior infarct. No stenosis occlusion or dissection of the vasculature of the neck was seen. Chest x-ray showed no acute cardiopulmonary process. At the time of my evaluation, patient's resting comfortably in bed and appears to be in no acute distress. Review of Systems REVIEW OF SYSTEMS: Otherwise unremarkable and noncontributory. Past Medical History Past Medical History: Seizure Disorder, Sleep Apnea/CPAP/BIPAP Additional Past Medical History / Comment(s): cerebral palsy History of Any Multi-Drug Resistant Organisms: None Reported Past Surgical History: Hernia Repair, Orthopedic Surgery Additional Past Surgical History / Comment(s): 37% brain removed r/t seizures, left hand surgery, left foot surgery Past Anesthesia/Blood Transfusion Reactions: No Reported Reaction Past Psychological History: No Psychological Hx Reported Smoking Status: Never smoker Past Alcohol Use History: None Reported Past Drug Use History: None Reported Medications and Allergies Home Medications Medication Instructions Recorded Confirmed Type Doxycycline Hyclate [Vibramycin] 100 mg PO BID 02/16/15 04/27/18 History Omeprazole 40 mg PO AC-BRKFST 02/16/15 04/27/18 History Sertraline HCl [Zoloft] 200 mg PO HS 02/16/15 04/27/18 History lamoTRIgine [LaMICtal] 400 mg PO BID 02/16/15 04/27/18 History HYDROcodone/APAP 5-325MG [[place] 1 tab PO DAILY PRN 05/29/17 04/27/18 History 5-325] Lacosamide [Vimpat] 150 mg PO BID 05/29/17 04/27/18 History Modafinil [Provigil] 100 mg PO BID 05/29/17 04/27/18 History Triamcinolone 0.1% Lotion [Kenalog 1 applic TOPICAL BID 05/29/17 04/27/18 History 0.1% Lotion] Acetaminophen [Tylenol Arthritis] 650 mg PO BID PRN 04/27/18 04/27/18 History Allergies Allergy/AdvReac Type Severity Reaction Status Date / Time vancomycin Allergy Rash/Hives Verified 04/27/18 16:06 meclizine HCl [From Antivert] AdvReac SEIZURE Verified 04/27/18 16:06 naproxen [From Naprosyn] AdvReac SEIZURE Verified 04/27/18 16:06 Physical Examination - Vital Signs Vital Signs: Vital Signs Temp Pulse Pulse Resp BP BP Pulse Ox 04/28/18 11:34 98.2 F 75 16 129/68 96 04/28/18 07:52 97.9 F 68 16 107/71 95 04/28/18 04:00 98.0 F 70 18 108/64 94 L 04/28/18 00:00 98.0 F 76 18 103/54 96 04/27/18 21:02 97 04/27/18 19:30 97.8 F 70 18 125/72 95 04/27/18 18:00 66 111/80 95 04/27/18 17:00 75 18 123/79 98 04/27/18 16:45 81 18 134/80 96 04/27/18 16:30 70 18 132/83 98 04/27/18 16:15 78 18 122/80 98 04/27/18 16:14 78 18 122/80 97 04/27/18 16:06 98.6 F 87 20 132/83 96 Intake and Output 04/28/18 04/28/18 04/28/18 06:59 14:59 22:59 Intake Total 150 Balance 150 Intake: Intake, IV Titration 100 Amount Sodium Chloride 0.9% 1, 100 000 ml @ 100 mls/hr IV . Q10H ALEJANDRO Rx#:[id number] Oral 50 Other: # Voids 1 2 Weight 107.1 kg PHYSICAL EXAM: GENERAL APPEARANCE: Patient is a well-developed, male with cerebral palsy who appears to be in no acute distress. HEENT: Normocephalic, atraumatic, no facial asymmetry is seen. Neck is supple with no masses felt. CARDIOVASCULAR: Regular rate and rhythm. ABDOMEN: Nontender, nondistended. EXTREMITIES: Show no edema or clubbing. NEUROLOGICAL EXAM: Patient is awake, alert, and oriented 3. Speech and language are normal. Strength is 4+/5 in the left upper and lower extremity. Sensory exam to light touch is normal in all 4 extremities. Mild facial asymmetry is seen which is chronic for patient. No tremors or seizure-like activity since admission. Results - Laboratory Findings CBC and BMP: 04/27/18 16:24 04/27/18 16:24 Abnormal Lab Findings: Abnormal Labs 04/27/18 04/27/18 04/27/18 16:24 16:24 16:24 Chloride 108 H Carbon Dioxide 21 L ALT 18 L Total Creatine Kinase 30 L Triglycerides 176 H Cholesterol 205 H LDL Cholesterol, Calc 143 H HDL Cholesterol 27 L Assessment and Plan Plan: Impression: 1. Seizure disorder, left-sided focal seizures 2. History of right cerebral dissection for intractable seizures 3. History of cerebral palsy 4. 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 Chronic left hemiparesis 6. Chronic back pain 7. Obstructive sleep apnea/CPAP Recommendation: It does appear patient had a left-sided focal seizure which is typical with his history of seizures. Patient does report he missed a dose or 2 of his seizure medication. I recommend continuing his current home dose of antiepileptic medication. Computed tomography scan of the brain did not show any acute process. I will order an EEG. As for his chronic back pain, he follows with Dr. Sen in the outpatient setting. No further seizures since admission. Patient is stable from a neurological standpoint. If EEG is not able to be performed today, this can be done as an outpatient. Continue seizure precautions. Continue neurological checks. Barring any abnormality on the EEG, I will continue to follow with you on an as-needed basis. Feel free to call with any questions or concerns. Thank you for allowing me to participate in the care of your patient. Feel free to call with any questions or concerns. I performed an examination of the patient and discussed the management with the SURGICAL AIDE. I have reviewed the SURGICAL AIDE notes and agree with the findings and plan of care.
[2018-04-28 15:39] VITALS: BP 118/70; PULSE 72; TEMP 98.3
--- NOTE | 2018-04-29 07:48 | DS ---
DISCHARGE SUMMARY DATE OF ADMISSION: 04/27/2018 DATE OF DISCHARGE: 04/28/2018 FINAL DIAGNOSES: 1. Left-sided focal seizures. 2. 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 3. Chronic left hemiparesis, primarily affecting left upper extremity from a prior right brain surgery. 4. Obesity, body mass index 37.3. 5. Chronic lumbar arthritis, L3-L5, being followed by Dr. Sen. 6. Obstructive sleep apnea uses CPAP machine. HOSPITAL COURSE: This is a pleasant patient who 10 years ago underwent about 37% of the right brain resected for intractable seizures, was doing well for about 5 years then had a seizure and then had one in January of this year and had a seizure for 3 minutes presenting here. Seen by Dr. Villatoro from Neurology. It was determined to leave the patient on the current medication. This was discussed with him and his mother by the Neurology Service. Patient's CT scan of the brain and CT angio of the brain showed only chronic changes. PHYSICAL EXAMINATION: Temperature 98.3, pulse 72, respirations 16, blood pressure 118/70. LUNGS: Clear. CARDIOVASCULAR: First and second sounds. Patient is weak in the left upper extremity. DISCHARGE MEDICATIONS: 1. Vibramycin 100 mg b.i.d., complete course. 2. Omeprazole 40 mg with breakfast. 3. Zoloft 200 mg p.o. q.h.s. 4. Lamictal 400 mg p.o. b.i.d. 5. [place] 5 one tablet daily p.r.n. 6. Vimpat 150 mg b.i.d. 7. Provigil 100 mg p.o. b.i.d. 8. Kenalog 0.1% topical b.i.d. 9. Tylenol Arthritis 650 mg b.i.d. p.r.n. FOLLOWUP: Follow up with Dr. Enciso in 1 week. Follow up with Dr. Sen in 1 week. Seizure precautions. MMODL / IJN: [id number] /
--- NOTE | 2018-04-29 13:51 | EEG ---
ELECTROENCEPHALOGRAM REPORT DATE OF SERVICE: 04/28/2018 DESCRIPTION OF THE PROCEDURE: This EEG was performed using a 21 channel digital electroencephalograph, following international 10-20 system. DESCRIPTION OF THE RECORDING: From the beginning of the tracing, and with patient's eyes closed, the background rhythm was mostly consisting of 8 hertz alpha frequency in the posterior occipital lead. No obvious asymmetry is seen. Occasional movement and muscle artifacts are seen. Photic stimulation was performed with a minimal driving response seen. No pathological waves were elicited. Hyperventilation was not performed. The patient does reach stage II of sleep during the tracing and occasional sleep spindles are seen. EKG artifacts are also seen. No epileptiform discharges were noticed. His EKG lead showed a regular rate and rhythm. INTERPRETATION: This asleep and awake EEG can be considered within normal limits. There is no asymmetry seen. No epileptiform discharges were noticed. The absence of epileptiform discharges does not rule out the diagnosis of epilepsy; therefore clinical correlation is recommended. MMMARCO ANTONIO / DAVID: [id number] /
== END 2018-04-28 16:15 | disposition home or self-care (01) | DRG 101 ==
LOC: EC 16:00 → 3SCARD 16:59
PROVIDERS: ADMIT Hospitalist; ATTEND Hospitalist
DX: G40.109 Localization-related (focal) (partial) symptomatic epilepsy and epileptic syndromes with simple partial seizures, not intractable, without status epilepticus (principal); G81.94 Hemiplegia, unspecified affecting left nondominant side; E66.9 Obesity, unspecified; E78.1 Pure hyperglyceridemia; G47.33 Obstructive sleep apnea (adult) (pediatric); G80.9 Cerebral palsy, unspecified; G89.29 Other chronic pain; I66.21 Occlusion and stenosis of right posterior cerebral artery; I66.01 Occlusion and stenosis of right middle cerebral artery; M47.816 Spondylosis without myelopathy or radiculopathy, lumbar region; Z68.37 Body mass index [BMI] 37.0-37.9, adult; Z79.899 Other long term (current) drug therapy; Z88.1 Allergy status to other antibiotic agents; Z88.8 Allergy status to other drugs, medicaments and biological substances
CPT/HCPCS: 36415; 70450; 70496; 70498; 71046; 80053; 80061; 82550; 82553; 84484; 85025; 85610; 85730; 93005; 94760; 95816; 99285

== ENCOUNTER 2018-05-24 11:43 | Emergency (ER) | payer MEDICARE, OTHER ==
[2018-05-24 12:24] VITALS: TEMP 98
--- NOTE | 2018-05-24 12:47 | ED ---
Lower Extremity Injury HPI - General Chief Complaint: Extremity Injury, Lower Stated Complaint: Fall-ankle injury Time Seen by Provider: 05/24/18 12:35 Source: patient, RN notes reviewed, old records reviewed Mode of arrival: wheelchair Limitations: physical limitation - History of Present Illness Initial Comments: 42-year-old male presents emergency department today with right ankle pain and swelling. Patient reports that he was walking from the garage. He reports he tripped over a small step and rolled his ankle. He denies any knee pain. He denies any previous injuries to this foot or ankle. Patient relates that he's had increased swelling and difficulty bearing weight at this time. He reports full range of motion of the toes. - Related Data Home Medications Medication Instructions Recorded Confirmed Doxycycline Hyclate [Vibramycin] 100 mg PO BID 02/16/15 04/27/18 Omeprazole 40 mg PO AC-BRKFST 02/16/15 04/27/18 Sertraline HCl [Zoloft] 200 mg PO HS 02/16/15 04/27/18 lamoTRIgine [LaMICtal] 400 mg PO BID 02/16/15 04/27/18 HYDROcodone/APAP 5-325MG [[place] 1 tab PO DAILY PRN 05/29/17 04/27/18 5-325] Lacosamide [Vimpat] 150 mg PO BID 05/29/17 04/27/18 Modafinil [Provigil] 100 mg PO BID 05/29/17 04/27/18 Triamcinolone 0.1% Lotion [Kenalog 1 applic TOPICAL BID 05/29/17 04/27/18 0.1% Lotion] Acetaminophen [Tylenol Arthritis] 650 mg PO BID PRN 04/27/18 04/27/18 Previous Rx's Medication Instructions Recorded Acetaminophen with Codeine 1 tab PO Q6H PRN 3 Days #12 tab 05/24/18 [Tylenol w/codeine #3] Allergies Allergy/AdvReac Type Severity Reaction Status Date / Time vancomycin Allergy Rash/Hives Verified 05/24/18 12:25 meclizine HCl [From Antivert] AdvReac SEIZURE Verified 05/24/18 12:25 naproxen [From Naprosyn] AdvReac SEIZURE Verified 05/24/18 12:25 Review of Systems ROS Statement: Those systems with pertinent positive or pertinent negative responses have been documented in the HPI. ROS Other: All systems not noted in ROS Statement are negative. 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 Alert and oriented 3. No acute distress. Limitations: physical limitation Head exam: Present: atraumatic, normocephalic, normal inspection Eye exam: Present: normal appearance, PERRL, EOMI. Absent: scleral icterus, conjunctival injection, periorbital swelling ENT exam: Present: normal exam, mucous membranes moist Neck exam: Present: normal inspection. Absent: tenderness, meningismus, lymphadenopathy Respiratory exam: Present: normal lung sounds bilaterally. Absent: respiratory distress, wheezes, rales, rhonchi, stridor Cardiovascular Exam: Present: regular rate, normal rhythm, normal heart sounds. Absent: systolic murmur, diastolic murmur, rubs, gallop, clicks Right Lower Leg exam: Present: normal inspection, full ROM Ankle exam: Present: tenderness, swelling (Tenderness and swelling over medial and lateral malleolus.). Absent: normal inspection Foot/Toe exam: Present: normal inspection, full ROM Neurovascular tendon exam: Present: no vascular compromise Gait: observed and limited by pain Back exam: Present: normal inspection Neurological exam: Present: alert, oriented X3, CN II-XII intact Psychiatric exam: Present: normal affect, normal mood Course Vital Signs 05/24/18 12:21 Temperature 98 F Pulse Rate 74 Respiratory 18 Rate Blood Pressure 128/76 O2 Sat by Pulse 97 Oximetry Procedures - Orthopedic Splinting/Casting Injury #1 Side: right Lower Extremity Injury Location: ankle Lower Extremity Immobilizer: posterior splint, stirrup splint Other Orthopedic Equipment: crutches Medical Decision Making - Medical Decision Making Patient is a 42-year-old male presents emergency room she with right ankle pain and swelling after he tripped and fell. Patient has diffuse soft tissue swelling over the right ankle and foot. He has tenderness over the medial and lateral malleolus. X-rays were completed do so small avulsion fracture over the medial malleolus. Patient was placed in a splint. Given referral for orthopedics. Discussed resting. Given prescription for crutches. Patient will follow-up with PCP and orthoin the next 1-2 days. Return parameters were discussed. - Radiology Data Radiology results: report reviewed There may be a small avulsion with the inferior medial malleolus. Correlate with location of patient's pain. Diffuse soft tissue swelling. Normal 3 view of the foot. Disposition Clinical Impression: Closed right ankle fracture Disposition: HOME SELF-CARE Condition: Good Instructions: Ankle Fracture (ED) Additional Instructions: Patient is to rest, and elevate the foot and ankle. Patient to remain in the splint was seen by orthopedic. Ambulance with crutches. Motrin and Tylenol for pain. Prescriptions: Acetaminophen with Codeine [Tylenol w/codeine #3] 1 tab PO Q6H PRN 3 Days #12 tab PRN Reason: Pain Is patient prescribed a controlled substance at d/c from ED?: Yes When asked, does pt state using other controlled substances?: Yes If prescribed controlled substance>3 days was MAPS reviewed?: Prescribed <3 Days If opioid is for acute pain is fill amount 7 days or less?: Yes If Rx opioid, was Start Talking consent form obtained?: Yes Referrals: Jose Enciso MD [Primary Care Provider] - 1-2 days Summer Larkin PAC [PHYSICIAN [employer]] - 1-2 days Kahlil Tavarez DO [Doctor of Osteopathic Medicine] - 1-2 days Time of Disposition: 13:27
--- NOTE | 2018-05-24 13:17 | XR ---
EXAMINATION TYPE: XR ankle complete RT DATE OF EXAM: 05/24/2018 COMPARISON: None HISTORY: Fall following 15 ankle TECHNIQUE: Three-view right ankle FINDINGS: There is prominent soft tissue swelling over the ankle. Ankle mortise is intact. There is a curvilinear calcification inferior to the medial malleolus. Correlate for an avulsion. This could be a tiny secondary ossification center. Note is made of plantar calcaneal heel spur. IMPRESSION: 1. There may be a small avulsion from the inferior medial malleolus. Correlate with location of janna ent's pain. 2. Prominent diffuse soft tissue swelling.
--- NOTE | 2018-05-24 13:20 | XR ---
EXAMINATION TYPE: XR foot complete RT DATE OF EXAM: 05/24/2018 COMPARISON: None HISTORY: Fall, pain TECHNIQUE: Three-view right foot FINDINGS: No acute displaced fractures within the foot are evident. The patient's suspected avulsion at the medial malleolus is poorly visualized on these images. Please see ankle report of same date. Joint spaces are preserved. Soft tissues at the foot are normal plantar calcaneal heel spur is presen t. IMPRESSION: 1. Normal three-view right foot. 2. Please also see right ankle dictation same date.
[2018-05-24 14:03] VITALS: BP 90/50; PULSE 66; RESP 14
== END 2018-05-24 14:00 | disposition home or self-care (01) ==
LOC: EC 11:43
DX: S82.841A Displaced bimalleolar fracture of right lower leg, initial encounter for closed fracture (principal); G40.909 Epilepsy, unspecified, not intractable, without status epilepticus; G47.30 Sleep apnea, unspecified; Z99.89 Dependence on other enabling machines and devices; Z79.899 Other long term (current) drug therapy; Z88.1 Allergy status to other antibiotic agents; Z88.6 Allergy status to analgesic agent; Z88.8 Allergy status to other drugs, medicaments and biological substances; W01.0XXA Fall on same level from slipping, tripping and stumbling without subsequent striking against object, initial encounter
CPT/HCPCS: 29515; 99284

== ENCOUNTER → 2018-08-13 | Outpatient (CLI) | payer MEDICARE, OTHER ==
--- NOTE | 2018-08-13 11:59 | PN ---
PROGRESS NOTE Tres is 43. He is coming in for a sleep apnea evaluation and followup. He has been diagnosed having obstructive sleep apnea with an AHI of 47 and he was treated with a CPAP pressure of 11 cm of water and he also takes Provigil for stimulation. He is a case of cerebral palsy. He is very cooperative to a CPAP therapy. During his last visit, I noted that his numbers have gone down in terms of his compliance to CPAP. I recommended back then for him to become more compliant knowing that he has had a previous TIA. Since then, the patient went back and is using his machine every night. His numbers are reflecting that. Never the less, his machine is not functioning appropriately. Humidification section is not working. Heating system is completely nonfunctional. At the same time this is making the patient uncomfortable and over the past 2 days his compliance has gone down again. He is very much interested in obtaining a new CPAP machine knowing that he has seen significant amount of benefit on CPAP over the years. He has utilized Mirage FX nose mask. REVIEW OF SYSTEMS: No seizure activity. No recent weight gain or weight loss. No nocturnal chest pain or shortness of breath or heartburn. As the patient is off the treatment for now he is feeling more somnolent and sleepy. His Hibbs score as a reflection of his sleepiness has gone up to 18. His review of systems is positive for sleepiness. He has cerebral palsy. Weight has been unchanged for now. No altered mentation. No respiratory difficulties. No sputum production. No GI problems such as heartburn, palpitation or belching. He had one bout of fall and he sustained a fracture to his ankle and this was treated by a air cast. No surgery was needed. PHYSICAL EXAMINATION: BP is 126/69, pulse 71, respirations 16, temperature 97.2. Hibbs score is 18. Weight is 227 pounds. Saturation 96% on room air. GENERAL APPEARANCE: Calm, comfortable. Head is atraumatic, normocephalic. Neck is supple. There is no JVD. No goiter or neck masses. Mallampati class 4. LUNGS: Diminished otherwise clear. HEART: Sounds regular rate and rhythm. Normal S1, S2. No S3, S4. No murmurs. ABDOMEN: Soft, nontender. No organomegaly. EXTREMITIES: No edema. No cyanosis or clubbing. NEUROLOGIC: Awake, alert, and there is no focal neurological deficits. PSYCHIATRIC: Negative for anxiety or depression. IMPRESSION: 1. Obstructive sleep apnea, AHI of 14, treated with a CPAP pressure of 11. 2. Hypersomnia. Hibbs score up to 18, probably related a nonfunctioning CPAP unit which has affected his compliancy. 3. Cerebral palsy. 4. History of epilepsy. 5. History of obesity, BMI 35.8. PLAN: Will recommend a new CPAP unit. Will give the patient ResMed AirSense CPAP unit at a pressure of 11 cm of water with C-flex of 3. We will offer him a Mirage FX nose mask. Encourage weight loss. Continue CPAP therapy. Continue Provigil for daytime stimulation. See me back in 30 to 90 days for a compliancy check on his new CPAP machine. An order was sent to [facility] in regard for a new labeling machine operator. MMMARCO ANTONIO / DAVID: [id number] /
== END ==
LOC: SLEEP 10:15
PROVIDERS: ATTEND Internal Medicine Critical Care Medicine
DX: G47.33 Obstructive sleep apnea (adult) (pediatric) (principal); G80.9 Cerebral palsy, unspecified; E66.9 Obesity, unspecified; G40.909 Epilepsy, unspecified, not intractable, without status epilepticus; Z68.35 Body mass index [BMI] 35.0-35.9, adult; Z99.89 Dependence on other enabling machines and devices

== ENCOUNTER → 2018-10-15 | Outpatient (CLI) | payer MEDICARE, OTHER ==
--- NOTE | 2018-10-15 19:43 | PN ---
PROGRESS NOTE This patient is 43, coming in for a compliancy check regarding his new CPAP unit. The patient was given an APAP unit, a ResMed AirSense automatic CPAP unit. This machine is set at a pressure of 11 cm of water. On today's compliance data the patient has been utilizing his machine on an average of 5.1 hours per night. His CPAP use for more than 4 hours is 20/30. AHI is down to 1.7 while on treatment and he is using a Mirage FX nose mask. Doing well. No complaints. He is utilizing his CPAP and he feels much more alert. During the day he also takes modafinil for alertness. REVIEW OF SYSTEMS: Fourteen-point review of systems was done; negative other than the things mentioned above in the history of present illness. PHYSICAL EXAMINATION: BP is 128/78, pulse 74, respirations 16, temperature 98.8, saturation 95% on room air. Height is 5 feet 7 inches, weight 226 and BMI 35.3. GENERAL APPEARANCE: Calm, comfortable. Head is atraumatic, normocephalic. NECK: Supple. There is no JVD. There is no goiter or neck mass. Mallampati class IV. LUNGS: Clear to auscultation. HEART: Heart sounds are regular rate and rhythm. Normal S1, S2. No S3, S4. No murmurs. ABDOMEN: Soft, nontender. No organomegaly. EXTREMITIES: No edema. No cyanosis or clubbing. Neurologically he has cerebral palsy. IMPRESSION: 1. Obstructive sleep apnea, currently on CPAP pressure of 11 cm of water. The patient is in compliancy. 2. Hypersomnia, improved. 3. Cerebral palsy. 4. Epilepsy. 5. Obesity; body mass index of 35. PLAN: 1. Continue CPAP with a pressure of 11. 2. Continue Mirage FX nose mask. 3. Weight loss. 4. Continue modafinil for daytime stimulation. 5. See me back in a year's time if his treatment is successful. Would like to achieve 70% of compliancy for more than 4 hours of APAP use, and I think he will be able to achieve it over the next few days. See me back in a year's time. MMODL / IJN: [id number] /
== END ==
LOC: SLEEP 13:06
PROVIDERS: ATTEND Internal Medicine Critical Care Medicine
DX: G47.33 Obstructive sleep apnea (adult) (pediatric) (principal); G80.9 Cerebral palsy, unspecified; G40.909 Epilepsy, unspecified, not intractable, without status epilepticus; E66.9 Obesity, unspecified; Z68.35 Body mass index [BMI] 35.0-35.9, adult; Z99.89 Dependence on other enabling machines and devices

== ENCOUNTER 2018-10-17 09:14 | Emergency (ER) | payer MEDICARE, OTHER ==
[2018-10-17] MEDS ORDERED: SODIUM CHLORIDE 0.9% 1,000 ML IV STA (09:30)
[2018-10-17] MEDS ORDERED: SODIUM CHLORIDE 0.9% 500 ML 500 ML IV STA (09:30)
--- NOTE | 2018-10-17 09:35 | ED ---
Dizziness HPI - General Chief Complaint: Dizziness Stated Complaint: Dizzy Time Seen by Provider: 10/17/18 09:22 Source: patient, RN notes reviewed Mode of arrival: wheelchair Limitations: no limitations - History of Present Illness Initial Comments: This a 44-year-old male with a history of CVA also history of cervical palsy with left-sided deficits from both who had the onset this morning while walking of some dizziness which is worse with moving his head and eyes. No headache chills nausea vomiting sweats no recent illnesses no hearing loss no p alpitations no other symptoms reported. MD Complaint: dizziness - Related Data Home Medications Medication Instructions Recorded Confirmed Doxycycline Hyclate [Vibramycin] 100 mg PO BID 02/16/15 10/17/18 Omeprazole 40 mg PO AC-BRKFST 02/16/15 10/17/18 Sertraline HCl [Zoloft] 200 mg PO HS 02/16/15 10/17/18 lamoTRIgine [LaMICtal] 400 mg PO BID 02/16/15 10/17/18 HYDROcodone/APAP 5-325MG [[place] 1 tab PO DAILY PRN 05/29/17 10/17/18 5-325] Lacosamide [Vimpat] 150 mg PO BID 05/29/17 10/17/18 Modafinil [Provigil] 100 mg PO BID@0800,1500 05/29/17 10/17/18 Ferrous Sulfate [Feosol] 325 mg PO DAILY 10/17/18 10/17/18 Allergies Allergy/AdvReac Type Severity Reaction Status Date / Time vancomycin Allergy Rash/Hives Verified 10/17/18 09:26 meclizine HCl [From Antivert] AdvReac SEIZURE Verified 10/17/18 09:26 naproxen [From Naprosyn] AdvReac SEIZURE Verified 10/17/18 09:26 Review of Systems ROS Statement: Those systems with pertinent positive or pertinent negative responses have been documented in the HPI. ROS Other: All systems not noted in ROS Statement are negative. 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 Absent: scleral icterus, conjunctival injection, periorbital swelling ENT exam: Present: mucous membranes dry Neck exam: Present: normal inspection, full ROM, other (No stridor JVD or bruits). Absent: tenderness, meningismus, lymphadenopathy Respiratory exam: Present: normal lung sounds bilaterally. Absent: respiratory distress, wheezes, rales, rhonchi, stridor Cardiovascular Exam: Present: regular rate, normal rhythm, normal heart sounds. Absent: systolic murmur, diastolic murmur, rubs, gallop, clicks GI/Abdominal exam: Present: soft, normal bowel sounds. Absent: distended, tenderness, guarding, rebound, rigid, bruit, pulsatile mass Extremities exam: Present: full ROM, normal capillary refill, other (Left upper extremity atrophy with flexion contracture. Some atrophy noted to the left lower extremity. No tenderness palpation.). Absent: tenderness, pedal edema, joint swelling, calf tenderness Back exam: Present: normal inspection Neurological exam: Present: alert, oriented X3, CN II-XII intact Psychiatric exam: Present: normal affect, normal mood Skin exam: Present: warm, dry, intact, normal color. Absent: rash Course Vital Signs 10/17/18 09:17 Temperature 98.7 F Pulse Rate 78 Respiratory 20 Rate Blood Pressure 116/77 O2 Sat by Pulse 98 Oximetry Medical Decision Making - Medical Decision Making Reevaluation patient finds that he is feeling improved no more dizziness is totally resolved he will be discharged with follow-up with his doctor - Lab Data Result diagrams: 10/17/18 09:58 10/17/18 09:58 Lab Results 10/17/18 10/17/18 10/17/18 Range/Units 09:58 09:58 09:58 WBC 5.8 (3.8-10.6) k/uL RBC 5.04 (4.30-5.90) m/uL Hgb 13.7 (13.0-17.5) gm/dL Hct 41.3 (39.0-53.0) % MCV 82.0 (80.0-100.0) fL MCH 27.1 (25.0-35.0) pg MCHC 33.1 (31.0-37.0) g/dL RDW 14.1 (11.5-15.5) % Plt Count 167 (150-450) k/uL Neutrophils % 76 % Lymphocytes % 17 % Monocytes % 4 % Eosinophils % 2 % Basophils % 1 % Neutrophils # 4.4 (1.3-7.7) k/uL Lymphocytes # 1.0 (1.0-4.8) k/uL Monocytes # 0.2 (0-1.0) k/uL Eosinophils # 0.1 (0-0.7) k/uL Basophils # 0.0 (0-0.2) k/uL Sodium 143 (137-145) mmol/L Potassium 4.7 (3.5-5.1) mmol/L Chloride 109 H (98-107) mmol/L Carbon Dioxide 25 (22-30) mmol/L Anion Gap 9 mmol/L BUN 18 (9-20) mg/dL Creatinine 0.89 (0.66-1.25) mg/dL Est GFR (CKD-EPI)AfAm >90 (>60 ml/min/1.73 sqM) Est GFR (CKD-EPI)NonAf >90 (>60 ml/min/1.73 sqM) Glucose 89 (74-99) mg/dL POC Glucose (mg/dL) (75-99) mg/dL POC Glu Machine Tracer ID Calcium 9.2 (8.4-10.2) mg/dL Magnesium 1.9 (1.6-2.3) mg/dL Total Bilirubin 0.6 (0.2-1.3) mg/dL AST 19 (17-59) U/L ALT 17 L (21-72) U/L Alkaline Phosphatase 55 (38-126) U/L Total Creatine Kinase 39 L (55-170) U/L CK-MB (CK-2) 0.6 (0.0-2.4) ng/mL CK-MB (CK-2) Rel Index 1.5 Troponin I <0.012 (0.000-0.034) ng/mL Total Protein 7.0 (6.3-8.2) g/dL Albumin 4.5 (3.5-5.0) g/dL /02/27 Range/Units 10:05 WBC (3.8-10.6) k/uL RBC (4.30-5.90) m/uL Hgb (13.0-17.5) gm/dL Hct (39.0-53.0) % MCV (80.0-100.0) fL MCH (25.0-35.0) pg MCHC (31.0-37.0) g/dL RDW (11.5-15.5) % Plt Count (150-450) k/uL Neutrophils % % Lymphocytes % % Monocytes % % Eosinophils % % Basophils % % Neutrophils # (1.3-7.7) k/uL Lymphocytes # (1.0-4.8) k/uL Monocytes # (0-1.0) k/uL Eosinophils # (0-0.7) k/uL Basophils # (0-0.2) k/uL Sodium (137-145) mmol/L Potassium (3.5-5.1) mmol/L Chloride (98-107) mmol/L Carbon Dioxide (22-30) mmol/L Anion Gap mmol/L BUN (9-20) mg/dL Creatinine (0.66-1.25) mg/dL Est GFR (CKD-EPI)AfAm (>60 ml/min/1.73 sqM) Est GFR (CKD-EPI)NonAf (>60 ml/min/1.73 sqM) Glucose (74-99) mg/dL POC Glucose (mg/dL) 94 (75-99) mg/dL POC Glu Machine Tracer ID Summer Boateng Calcium (8.4-10.2) mg/dL Magnesium (1.6-2.3) mg/dL Total Bilirubin (0.2-1.3) mg/dL AST (17-59) U/L ALT (21-72) U/L Alkaline Phosphatase (38-126) U/L Total Creatine Kinase (55-170) U/L CK-MB (CK-2) (0.0-2.4) ng/mL CK-MB (CK-2) Rel Index Troponin I (0.000-0.034) ng/mL Total Protein (6.3-8.2) g/dL Albumin (3.5-5.0) g/dL - Radiology Data Radiology results: report reviewed (I did review the imaging and report no acute findings are seen.), image reviewed Disposition Clinical Impression: Benign paroxysmal positional vertigo Disposition: HOME SELF-CARE Condition: Good Instructions (If sedation given, give patient instructions): Dizziness (ED) Additional Instructions: Increase oral fluid consumption Is patient prescribed a controlled substance at d/c from ED?: No Referrals: Jose Enciso MD [Primary Care Provider] - 1-2 days
[2018-10-17 10:07] LABS: Glucose,Whole Blood 94 mg/dL (75-99)
[2018-10-17 10:12] LABS: Basophils % (A) 1 %; Eosinophils # (A) 0.1 k/uL (0-0.7); Eosinophils % (A) 2 %; HCT 41.3 % (39.0-53.0); HGB 13.7 gm/dL (13.0-17.5); Lymphocytes % (A) 17 %; MCH 27.1 pg (25.0-35.0); MCHC 33.1 g/dL (31.0-37.0); Mean Platelet Volume 6.9; Monocytes # (A) 0.2 k/uL (0-1.0); Monocytes % (A) 4 %; Neutrophils # (A) 4.4 k/uL (1.3-7.7); Neutrophils % (A) 76 %; Platelet Count 167 k/uL (150-450); RBC 5.04 m/uL (4.30-5.90); RDW 14.1 % (11.5-15.5); WBC 5.8 k/uL (3.8-10.6)
--- NOTE | 2018-10-17 10:33 | CT ---
EXAMINATION TYPE: CT brain wo con DATE OF EXAM: 10/17/2018 COMPARISON: CT brain April 27, 2018 and older studies HISTORY: Dizziness today CT DLP: 1099.4 mGycm. Automated Exposure Control for Dose Reduction was Utilized. TECHNIQUE: CT scan of the head is performed without contrast. FINDINGS: There is no acute intracranial hemorrhage identified. There is persistent right frontal p arietal craniotomy with large area of encephalomalacia with right-sided volume loss and mediastinal s hift all redemonstrated. No new hydrocephalus is present. Ventricle size is stable. Ex vacuo dilatati on right-sided ventricular system is redemonstrated. The globes are intact and the visualized sinuses are clear. IMPRESSION: Overall stable findings, large area of encephalomalacia right brain with right-sided volu me loss and mediastinal shift.
--- NOTE | 2018-10-17 10:34 | XR ---
EXAMINATION TYPE: XR chest 2V DATE OF EXAM: 10/17/2018 COMPARISON: Prior chest x-ray April 27, 2018 HISTORY: Cough and weakness. TECHNIQUE: Frontal and lateral views of the chest are obtained. FINDINGS: Overlying EKG leads are present. There is no focal air space opacity, pleural effusion, or pneumothorax seen. The cardiac silhouette size is within normal limits. The osseous structures ar e intact. IMPRESSION: No suspicious acute infiltrate. No significant change from prior.
[2018-10-17 10:39] LABS: ALT 17 U/L (21-72); AST 19 U/L (17-59); Albumin 4.5 g/dL (3.5-5.0); Alkaline Phosphatase 55 U/L (38-126); Anion Gap 9 mmol/L; Blood Urea Nitrogen 18 mg/dL (9-20); Calcium 9.2 mg/dL (8.4-10.2); Carbon Dioxide 25 mmol/L (22-30); Chloride 109 mmol/L (98-107); Glucose 89 mg/dL (74-99); Magnesium 1.9 mg/dL (1.6-2.3); Sodium 143 mmol/L (137-145); Total Bilirubin 0.6 mg/dL (0.2-1.3)
[2018-10-17 10:41] LABS: Creatine Kinase 39 U/L (55-170)
[2018-10-17 10:53] LABS: Creatine Kinase MB 0.6 ng/mL (0.0-2.4); Potassium 4.7 mmol/L (3.5-5.1); Troponin I <0.012 ng/mL (0.000-0.034)
[2018-10-17 12:19] VITALS: BP 112/72; PULSE 70; RESP 18; TEMP 97.9
== END 2018-10-17 12:19 | disposition home or self-care (01) ==
LOC: EC 09:14
DX: H81.10 Benign paroxysmal vertigo, unspecified ear (principal); G40.909 Epilepsy, unspecified, not intractable, without status epilepticus; G47.30 Sleep apnea, unspecified; Z86.73 Personal history of transient ischemic attack (TIA), and cerebral infarction without residual deficits; Z99.89 Dependence on other enabling machines and devices; Z79.899 Other long term (current) drug therapy; Z88.1 Allergy status to other antibiotic agents; Z88.6 Allergy status to analgesic agent; Z88.8 Allergy status to other drugs, medicaments and biological substances
CPT/HCPCS: 36415; 70450; 71046; 80053; 82550; 82553; 83735; 84484; 85025; 93005; 96360; 96361; 99284

== ENCOUNTER → 2020-04-20 | Outpatient (CLI) | payer MEDICARE, OTHER ==
--- NOTE | 2020-04-20 19:37 | PN ---
PROGRESS NOTE This is a 44-year-old male patient with known history of obstructive sleep apnea, severe, with an AHI of 47. The patient is somnolent and sleepy despite being on CPAP. I checked his compliance data, and his overall compliance has gotten worse. The patient was averaging around 5-1/2 to 6 hours, and currently he is averaging around 4.7 hours of CPAP use per night, and his CPAP use for more than 4 hours is approaching the 55%. He is wearing his machine every night. While on treatment, his AHI is down to 1.1 and his leak is on the order of 25 L/minute. The patient has a [employer] AirSense automatic unit which is set at a pressure of 11 cm of water. During this ongoing pandemic, the patient has not done much activity. His weight was 226 approximately a year ago, and current weight is up to 254. He has been napping a lot during the day. To counteract his somnolence and sleepiness, the patient was started on Provigil 200 mg half a tablet twice a day. He takes the first tablet around 8 a.m. and the second tablet around 1:30 p.m. No side effects related to Provigil. The level of alertness improves while on Provigil. The emphasis should be on improving his compliance and improving his number of hours of sleep that he takes in the evening. The patient also needs to eliminate naps during the day. No falls. No angina. No palpitation. No shortness of breath. No chest pain. No seizure activity. VITAL SIGNS: BP is 139/76, pulse 68, respirations 16, temperature 98.1, weight is 254, BMI 39.6, saturation 96% on room air. GENERAL APPEARANCE: Calm, comfortable. HEAD: Atraumatic, normocephalic. NECK: Supple. No JVD. No goiter or neck masses. Mallampati class IV. LUNGS: Clear to auscultation. HEART: Heart sounds are regular rate and rhythm. Normal S1, S2. No S3, S4. No murmurs. ABDOMEN: Soft, nontender. No organomegaly. EXTREMITIES: No edema. No cyanosis or clubbing. Medications includes Lamictal 400 mg twice a day, Vimpat 150 mg twice a day, Zoloft 12 mg p.o. daily, modafinil 100 mg twice a day, and he is on vitamin D3. IMPRESSION: 1. Obstructive sleep apnea, severe, with an AHI of 47, currently on CPAP pressure of 11 cm of water. 2. Hypersomnia, probably related to the limited number of hours that are being utilized for sleep and diminished compliance with his CPAP unit. The patient is on Provigil for residual hypersomnia and sleepiness. 3. Obesity with interval weight gain. Current BMI is up to 39.6 and his weight is up to 254. 4. Cerebral palsy. 5. Epilepsy, which is currently inactive and stable. PLAN: 1. Keep CPAP pressure at 11 cm of water. 2. He was asked to lose weight. The patient has gained around 18 pounds since his last evaluation. 3. Need to extend his sleep hours at nighttime. The patient needs to go to bed earlier than 11 p.m. He needs to eliminate all naps during the day. 4. Refill Provigil at a dose of 100 mg twice a day at 8 a.m. and 1:30 p.m. 5. Implement good sleep hygiene measures. 6. Would like to see improvement in number of hours that he is averaging on his CPAP unit. His is currently at 4.7 hours and he used to be using it more than 5.8 hours per night. He was made aware of that and he was counseled in that regard. 7. See me back in a year's time in followup, earlier if needed. DONALD / DAVID: [id number] /
== END | disposition home or self-care (01) ==
LOC: SLEEP 15:36
PROVIDERS: ATTEND Internal Medicine Critical Care Medicine
DX: G47.33 Obstructive sleep apnea (adult) (pediatric) (principal); E66.9 Obesity, unspecified; Z68.39 Body mass index [BMI] 39.0-39.9, adult; G80.9 Cerebral palsy, unspecified; G40.909 Epilepsy, unspecified, not intractable, without status epilepticus; Z99.89 Dependence on other enabling machines and devices; Z79.899 Other long term (current) drug therapy

== ENCOUNTER → 2021-04-12 | Outpatient (CLI) | payer MEDICARE, OTHER ==
--- NOTE | 2021-04-12 15:00 | PN ---
PROGRESS NOTE Tres is 45 coming in for an annual check regarding obstructive sleep apnea. The patient is known to have cerebral palsy and seizure disorder and obstructive sleep apnea. I have treated this patient for many years regarding his CHARITO. Currently he is on CPAP therapy at a pressure of 11 cm of water. Because of ongoing hypersomnia and sleepiness despite CPAP therapy, I have offered this patient Provigil treatment in the past. The patient continues to take Provigil 200 mg during the day in the morning. This helps him with his day to day functionality and offers him adequate stimulation. No seizure disorder. No headaches. No stroking. He is doing well. He seems to be well treated. His level of alertness is acceptable for now. He is not falling asleep during day-to-day activities. He is taking the Provigil without any side effects. Meanwhile, I checked his compliance data on the CPAP machine. The patient remains to be very compliant utilizing CPAP therapy at a pressure of 11 cm of water. He has used his machine every night and his compliance for more than 4 hours is 80%. He is averaging 6 hours of CPAP use per night and his AHI is down to 1.4, indicating successful treatment. Leak is in order of 29 L/minute. No nocturnal chest pain. No headaches in the morning. No nighttime chest pain, shortness of breath or palpitations. No seizure activity has been noted by the family members and the patient is being working with Dr. Villatoro his neurologist. REVIEW OF SYSTEMS: Fourteen-point review of system was done. 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 No seizure activity has been noted. He has also functionality problems using his right upper extremity. PHYSICAL EXAMINATION: VITAL SIGNS: BP is 129/75, pulse 75, respirations 16, temperature 97, saturation is 95% on room air. Height is 5 feet 7 inches, weight 247. BMI to 38.6. Livermore score is at 10. GENERAL APPEARANCE: Calm, comfortable. HEAD is atraumatic, normocephalic. NECK: Supple. No JVD. No neck masses. LUNGS: Diminished breath sounds, otherwise clear. HEART: Heart sounds are regular rate and rhythm. Normal S1, S2. No murmurs. ABDOMEN: Soft, nontender. No organomegaly. EXTREMITIES: No edema. No cyanosis or clubbing. NEUROLOGICALLY, chronic paresis of the right upper and right lower extremity. IMPRESSION: 1. Symptomatic obstructive sleep apnea, AHI of 47. Currently successfully treated at a pressure of 11 cm of water. 2. Hypersomnia, improved with a combination of CPAP therapy and Provigil for residual tiredness and sleepiness. Livermore score is down to 10. Provigil is being taken without any major side effects. 3. Obesity with interval weight loss. Currently the patient is weighing 247 pounds, which is around 7 pounds less compared to his last evaluation. 4. Cerebral palsy. 5. History of epilepsy. PLAN: Clinically, the patient is responding. His level of alertness is good. He is utilizing CPAP and is very compliant. He is also using Provigil for daytime functionality and alertness at a dose of 200 mg p.o. daily and has been able to take it without any major side effects or adverse effects. He is sleeping well. His sleep quality is good. He is waking up refreshed. Continue CPAP therapy at same level of pressure. Keep the same mask interface. Keep same pressure setting. Encourage further weight loss. Optimize sleep hygiene measures. Follow up with Neurology regarding his cerebral palsy and seizure activities. We will continue to follow him in a year's time in followup. MMODL / IJN: [id number] /
== END ==
LOC: SLEEP 12:53
PROVIDERS: ATTEND Internal Medicine Critical Care Medicine
DX: G47.33 Obstructive sleep apnea (adult) (pediatric) (principal); E66.9 Obesity, unspecified; G80.9 Cerebral palsy, unspecified; Z86.69 Personal history of other diseases of the nervous system and sense organs; Z99.89 Dependence on other enabling machines and devices; Z68.38 Body mass index [BMI] 38.0-38.9, adult

== ENCOUNTER → 2021-09-30 | Outpatient (CLI) | payer MEDICARE, OTHER ==
--- NOTE | 2021-10-01 09:13 | CT ---
EXAMINATION TYPE: CT brain wo con DATE OF EXAM: 09/30/2021 COMPARISON: 10/17/2018 HISTORY: Orbital floor fraction CT DLP: 1117.27 mGycm. Automated Exposure Control for Dose Reduction was Utilized. TECHNIQUE: CT scan of the head is performed without contrast. FINDINGS: There is no interval change. Post craniotomy change is present, CSF attenuation is presen t throughout much of the distribution of the right supratentorial brain with a small part of the supe rior cerebellar hemisphere the right affected. No evident hemorrhage or hydrocephalus. IMPRESSION: No acute intracranial hemorrhage, mass effect, or midline shift is seen. Stable abnormal brain CT with larger area of encephalomalacia in the right brain, right-sided volume loss
--- NOTE | 2021-10-01 10:25 | CT ---
EXAMINATION TYPE: CT orbits wo con DATE OF EXAM: 09/30/2021 COMPARISON: CT brain same date HISTORY: Orbital floor fracture, S02.32XA CT DLP: 288.04 mGycm Automated exposure control for dose reduction was used. Helical imaging through the orbits. FINDINGS: The orbital floors appear intact. No evident entrapment. Nasal septum is deviated toward the right. O rbits show symmetric appearance. Extraocular muscles are symmetric. Optic nerves unremarkable. Cerebr ovascular accident changes are again noted as discussed on brain CT same date. Visualized paranasal s inuses are well aerated. Ostiomeatal units are intact. IMPRESSION: EVIDENCE OF PRIOR CEREBROVASCULAR ACCIDENT.
== END | disposition home or self-care (01) ==
LOC: RADCTMAIN 18:20
PROVIDERS: ATTEND Ophthalmology
DX: G93.89 Other specified disorders of brain (principal); R93.0 Abnormal findings on diagnostic imaging of skull and head, not elsewhere classified; Z86.73 Personal history of transient ischemic attack (TIA), and cerebral infarction without residual deficits
CPT/HCPCS: 70450; 70480

== ENCOUNTER 2022-03-24 09:56 | Observation (INO) | payer MEDICARE, OTHER ==
--- NOTE | 2022-03-24 10:53 | ED ---
General Adult HPI - General Chief complaint: Nausea/Vomiting/Diarrhea Stated complaint: Nausea,vomiting Time Seen by Provider: 03/24/22 10:19 Source: patient, family, EMS, RN notes reviewed Mode of arrival: EMS Limitations: physical limitation - History of Present Illness Initial comments: Patient is a 46-year-old male presenting to the emergency room with complaints of dizziness, difficulty in ambulating and intermittent nausea. According to his mother symptoms began around 9:00 this morning. He has a history of similar symptoms and was diagnosed with TIA. Despite his cerebral palsy typically does not have difficulties ambulating. He has significant tremor to his right side which he and his mother report are worse today. He denies any vision changes, tinnitus, ear pain, abdominal pain not related to his nausea, diarrhea, other neurological deficits, recent seizure activity, fevers or chills. As stated above he has a past medical history significant for cerebral palsy, TIA, seizures, tremors, depression and sleep apnea. - Related Data Home Medications Medication Instructions Recorded Confirmed Sertraline HCl [Zoloft] 200 mg PO HS 02/16/15 03/24/22 lamoTRIgine [LaMICtal] 400 mg PO Q12H 02/16/15 03/24/22 Lacosamide [Vimpat] 150 mg PO Q12H 05/29/17 03/24/22 modafiniL [Provigil] 100 mg PO BID@0800,1500 05/29/17 03/24/22 Aspirin EC [Ecotrin Low Dose] 81 mg PO DAILY 03/24/22 03/24/22 Cholecalciferol [Vitamin D3 (25 50 mcg PO DAILY 03/24/22 03/24/22 Mcg = 1000 Iu)] Hydrocodone/Acetaminophen 1 tab PO DAILY PRN 03/24/22 03/24/22 [Hydrocodone/Acetaminophen 5-325] Primidone [Mysoline] 250 mg PO DAILY 03/24/22 03/24/22 Allergies Allergy/AdvReac Type Severity Reaction Status Date / Time vancomycin Allergy Rash/Hives Verified 03/24/22 12:55 meclizine HCl [From Antivert] AdvReac SEIZURE Verified 03/24/22 12:55 naproxen [From Naprosyn] AdvReac SEIZURE Verified 03/24/22 12:55 Review of Systems ROS Statement: Those systems with pertinent positive or pertinent negative responses have been documented in the HPI. ROS Other: All systems not noted in ROS Statement are negative. 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 removed r/t seizures, left hand surgery, left foot surgery Past Anesthesia/Blood Transfusion Reactions: No Reported Reaction Past Psychological History: No Psychological Hx Reported Smoking Status: Never smoker Past Alcohol Use History: None Reported Past Drug Use History: None Reported General Exam Limitations: physical limitation General appearance: alert, in no apparent distress Head exam: Present: normal inspection Eye exam: Present: normal appearance Expanded Ear exam: Present: normal external inspection, other (mild cerumen bilateral difficult to visualize TM) Mouth exam: Present: normal external inspection Neck exam: Present: normal inspection Respiratory exam: Present: normal lung sounds bilaterally. Absent: respiratory distress, wheezes, rales, rhonchi, stridor Cardiovascular Exam: Present: regular rate, normal rhythm, normal heart sounds. Absent: systolic murmur, diastolic murmur, rubs, gallop, clicks GI/Abdominal exam: Present: soft, normal bowel sounds. Absent: distended, tenderness, guarding, rebound, rigid Rectal exam: Present: deferred Extremities exam: Present: pedal edema (trace bilateral). Absent: tenderness Neurological exam: Present: alert, oriented X3 Expanded Neurological exam: Present: tremor (Right sided) Motor strength exam: LUE: 2/1 (contracted with minimal movement) Psychiatric exam: Present: normal affect, normal mood Skin exam: Present: warm, dry, intact, normal color. Absent: rash Course Vital Signs 03/24/22 09:58 Temperature 97.3 F L Pulse Rate 77 Respiratory 16 Rate Blood Pressure 113/65 O2 Sat by Pulse 93 L Oximetry Medical Decision Making - Medical Decision Making 46-year-old male presenting to the emergency room with dizziness and intermittent nausea with increase in chronic tremor. History of TIA with similar symptoms will check computed tomography scan. Will also check baseline labs of CMP, CBC along with COVID and influenza swabs. Denies any antiemetic needs at this time. Influenza swabs negative. Positive for COVID. CBC with mild leukopenia and thrombocytopenia consistent with Covid. Potassium low at 3.1 was replaced orally with 40 mEq of KCl. After replacement will evaluate dizziness and weakness for ability to ambulate for safe discharge home. Tolerated replacement of potassium well. Significant weakness and reported dizziness upon standing unable to bear weight without significant support. Discharge home with moderate support from mother versus observation stay for weakness discussed with mother and patient; both requesting observation stay for further evaluation and monitoring. Case discussed with Dr. Burgess excepting admission for observation stay for weakness related to COVID. Case discussed with Dr. Lynn. - Lab Data Result diagrams: 03/24/22 10:23 03/24/22 11:40 Lab Results 03/24/22 03/24/22 03/24/22 Range/Units 10: 10:27 10:27 WBC 3.0 L (3.8-10.6) k/uL RBC 4.97 (4.30-5.90) m/uL Hgb 13.9 (13.0-17.5) gm/dL Hct 40.9 (39.0-53.0) % MCV 82.1 (80.0-100.0) fL MCH 28.0 (25.0-35.0) pg MCHC 34.1 (31.0-37.0) g/dL RDW 13.5 (11.5-15.5) % Plt Count 107 L (150-450) k/uL MPV 7.9 Neutrophils % 70 % Lymphocytes % 23 % Monocytes % 5 % Eosinophils % 1 % Basophils % 0 % Neutrophils # 2.1 (1.3-7.7) k/uL Lymphocytes # 0.7 L (1.0-4.8) k/uL Monocytes # 0.2 (0-1.0) k/uL Eosinophils # 0.0 (0-0.7) k/uL Basophils # 0.0 (0-0.2) k/uL Sodium (137-145) mmol/L Potassium (3.5-5.1) mmol/L Chloride (98-107) mmol/L Carbon Dioxide (22-30) mmol/L Anion Gap mmol/L BUN (9-20) mg/dL Creatinine (0.66-1.25) mg/dL Est GFR (CKD-EPI)AfAm (>60 ml/min/1.73 sqM) Est GFR (CKD-EPI)NonAf (>60 ml/min/1.73 sqM) Glucose (74-99) mg/dL Calcium (8.4-10.2) mg/dL Coronavirus (PCR) Detected A (Not Detectd) Influenza Type A RNA Not Detected (Not Detectd) Influenza Type B (PCR) Not Detected (Not Detectd) 03/24/22 Range/Units 11:40 WBC (3.8-10.6) k/uL RBC (4.30-5.90) m/uL Hgb (13.0-17.5) gm/dL Hct (39.0-53.0) % MCV (80.0-100.0) fL MCH (25.0-35.0) pg MCHC (31.0-37.0) g/dL RDW (11.5-15.5) % Plt Count (150-450) k/uL MPV Neutrophils % % Lymphocytes % % Monocytes % % Eosinophils % % Basophils % % Neutrophils # (1.3-7.7) k/uL Lymphocytes # (1.0-4.8) k/uL Monocytes # (0-1.0) k/uL Eosinophils # (0-0.7) k/uL Basophils # (0-0.2) k/uL Sodium 142 (137-145) mmol/L Potassium 3.1 L (3.5-5.1) mmol/L Chloride 100 (98-107) mmol/L Carbon Dioxide 29 (22-30) mmol/L Anion Gap 13 mmol/L BUN 9 (9-20) mg/dL Creatinine 0.86 (0.66-1.25) mg/dL Est GFR (CKD-EPI)AfAm >90 (>60 ml/min/1.73 sqM) Est GFR (CKD-EPI)NonAf >90 (>60 ml/min/1.73 sqM) Glucose 112 H (74-99) mg/dL Calcium 8.3 L (8.4-10.2) mg/dL Coronavirus (PCR) (Not Detectd) Influenza Type A RNA (Not Detectd) Influenza Type B (PCR) (Not Detectd) - Radiology Data Radiology results: report reviewed, image reviewed CT of the brain without contrast impression: 1. Similar surgical changes along the right lateral conductivity with underlying extensive encephalomalacia of the right cerebral hemisphere, secondary volume loss and enlargement of the right lateral ventricle. Similar 4 mm rightward midline shift due to volume loss. No acute intracranial abnormalities. 2. Moderate mucosal thickening has developed throughout the end ethmoid air cells. Disposition Clinical Impression: COVID, Weakness Disposition: ADMITTED IP TO THIS HOSP Condition: Stable Is patient prescribed a controlled substance at d/c from ED?: No Referrals: Jose Enciso MD [Primary Care Provider] - 1-2 days Time of Disposition: 13:55
--- NOTE | 2022-03-24 11:18 | CT ---
EXAMINATION TYPE: CT brain wo con DATE OF EXAM: 03/24/2022 COMPARISON: 09/30/2021 HISTORY: 46-year-old male Dizziness, abnormal gait, seizure history, tremors, cerebral palsy TECHNIQUE: Examination was done in axial plane without intravenous contrast. Coronal and sagittal r econstructions performed. CT DLP: 1076.4 mGycm Automated exposure control for dose reduction was used. FINDINGS: Moderate mucosal thickening throughout the ethmoid air cells. Rightward nasal septal deviation. Large craniotomy flap along the right lateral convexity. Extensive underlying encephalomalacia throug hout the right cerebral hemisphere. Secondary asymmetric enlargement right lateral ventricle. Due to the volume loss on the right, there is a similar 4 mm of rightward midline shift demonstrated. Some nonspecific calcification along the right lateral convexity posterior superior temporal region r emains unchanged. No evidence for acute intracranial hemorrhage, mass, mass effect, or otherwise any extra-axial fluid collection. No effacement of basal subarachnoid cisterns are loss of chamorro-white matter differentiatio n. IMPRESSION: 1. Similar surgical change along the right lateral convexity with underlying extensive encephalomalac ia of the right cerebral hemisphere, secondary volume loss, and enlargement of the right lateral vent ricle. Similar 4 mm of rightward midline shift due to the volume loss. No acute intracranial abnormal ity seen. 2. Moderate mucosal thickening has developed throughout the ethmoid air cells.
[2022-03-24 11:47] LABS: Basophils % (A) 0 %; Eosinophils % (A) 1 %; HCT 40.9 % (39.0-53.0); HGB 13.9 gm/dL (13.0-17.5); Lymphocytes # (A) 0.7 k/uL (1.0-4.8); Lymphocytes % (A) 23 %; MCHC 34.1 g/dL (31.0-37.0); MCV 82.1 fL (80.0-100.0); Mean Platelet Volume 7.9; Monocytes # (A) 0.2 k/uL (0-1.0); Monocytes % (A) 5 %; Neutrophils # (A) 2.1 k/uL (1.3-7.7); Neutrophils % (A) 70 %; Platelet Count 107 k/uL (150-450); RBC 4.97 m/uL (4.30-5.90); RDW 13.5 % (11.5-15.5)
[2022-03-24 11:51] LABS: African American GFR (CKD) >90 (>60 ml/min/1.73 sqM); Anion Gap 13 mmol/L; Blood Urea Nitrogen 9 mg/dL (9-20); Calcium 8.3 mg/dL (8.4-10.2); Carbon Dioxide 29 mmol/L (22-30); Chloride 100 mmol/L (98-107); Glucose 112 mg/dL (74-99); Non-African American GFR(CKD) >90 (>60 ml/min/1.73 sqM); Potassium 3.1 mmol/L (3.5-5.1); Sodium 142 mmol/L (137-145)
[2022-03-24] MEDS ORDERED: POTASSIUM CHLORIDE ER 20 MEQ TAB.ER PO STA (12:01)
[2022-03-24] MEDS ORDERED: NALOXONE 0.4 MG/ML 1 ML VIAL IV PRN (13:54)
[2022-03-24] MEDS ORDERED: HYDROcodone/APAP 5-325MG 1 EACH TAB PO PRN (15:19)
--- NOTE | 2022-03-24 16:16 | P.HPIM ---
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 He claims that one week ago he had "cold", which he might have gotten from his mother. He claims that he is recovering. However, today he's noticed that his lower extremity weakness is worse to the point that he is unable to get out of bed. He complains of dizziness, but unable to express whether he has vertigo or lightheadedness. He denies any new pain, chest pain, shortness of breath, abdominal pain, palpitations, urinary or bowel complaints. He denies any recent travel history. In the ED, his vital signs were within normal limits, saturating well on room air. He tested positive for COVID-19. He had mild leukopenia of 3, thrombocytopenia 107. He had mild hypokalemia of 3.1. CT head showed extensive encephalomalacia from prior surgery involving the right cerebral hemisphere and significant volume loss. No acute intracranial abnormality seen. Pertinent positives and negatives as discussed in HPI, a complete review of systems was performed and all other systems are negative. Patient seen and examined at bedside. Vital signs reviewed General: nontoxic, no distress, appears at stated age Derm: warm, dry Head: atraumatic, normocephalic, symmetric Eyes: EOMI, no lid lag, anicteric sclera, pupils equal round reactive to light ENT: Nose and ears atraumatic, no thrush, no pharyngeal erythema Neck: No thyromegaly, trachea midline, supple Mouth: no lip lesion, mucus membranes moist Cardiovascular: S1S2 reg, no murmur, no edema Lungs: clear to auscultation bilateral, no rhonchi, no rales, no wheeze, no accessory muscle use Abdominal: soft, nontender to palpation, no guarding, no appreciable organomegaly, normal bowel sounds Ext: Left arm contracture, right hand resting tremor, lower extremity bilateral strength 5/5, left arm strength 5 out of 5 Neuro: Dysarthria, light touch intact all 4 extremities Psych: Alert, oriented, appropriate affect Assessment/Plan: Generalized weakness COVID-19 infection, symptomatic Worsening chronic tremor Dizziness -Orthostatic vitals pending -B12 levels - PT/OT -Continue home medications -Supplemental oxygen if needed Hypokalemia -Replete Thrombocytopenia Leukopenia -Likely secondary to COVID-19 infection Epilepsy Chronic back pain -Continue home medications The patient is admitted with an anticipated less than 2 midnight stay for evaluation of generalized lower extremity weakness. Surrogate decision-maker: Mother CODE STATUS: Full code DVT prophylaxis: Lovenox Anticipated discharge date: 03/25/[address]: Home A total of 48 minutes was spent on the care of this complex patient more than 50% of the time was spent in counseling and care coordination. 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 removed r/t seizures, left hand surgery, left foot surgery Past Anesthesia/Blood Transfusion Reactions: No Reported Reaction Past Psychological History: No Psychological Hx Reported Smoking Status: Never smoker Past Alcohol Use History: None Reported Past Drug Use History: None Reported Medications and Allergies Home Medications Medication Instructions Recorded Confirmed Type Sertraline HCl [Zoloft] 200 mg PO HS 02/16/15 03/24/22 History lamoTRIgine [LaMICtal] 400 mg PO Q12H 02/16/15 03/24/22 History Lacosamide [Vimpat] 150 mg PO Q12H 05/29/17 03/24/22 History modafiniL [Provigil] 100 mg PO BID@0800,1500 05/29/17 03/24/22 History Aspirin EC [Ecotrin Low Dose] 81 mg PO DAILY 03/24/22 03/24/22 History Cholecalciferol [Vitamin D3 (25 50 mcg PO DAILY 03/24/22 03/24/22 History Mcg = 1000 Iu)] Hydrocodone/Acetaminophen 1 tab PO DAILY PRN 03/24/22 03/24/22 History [Hydrocodone/Acetaminophen 5-325] Primidone [Mysoline] 250 mg PO DAILY 03/24/22 03/24/22 History Allergies Allergy/AdvReac Type Severity Reaction Status Date / Time vancomycin Allergy Rash/Hives Verified 03/24/22 12:55 meclizine HCl [From Antivert] AdvReac SEIZURE Verified 03/24/22 12:55 naproxen [From Naprosyn] AdvReac SEIZURE Verified 03/24/22 12:55 Physical Exam Vitals: Vital Signs Temp Pulse Resp BP Pulse Ox 03/24/22 16:03 78 16 98 03/24/22 09:58 97.3 F L 77 16 113/65 93 L Intake and Output 03/24/22 03/24/22 03/24/22 06:59 14:59 22:59 Other: Weight 108 kg Results CBC & Chem 7: 03/24/22 10:23 03/24/22 11:40 Labs: Abnormal Lab Results - Last 24 Hours (Table) 03/24/22 03/24/22 03/24/22 Range/Units 10:23 10:27 11:40 WBC 3.0 L (3.8-10.6) k/uL Plt Count 107 L (150-450) k/uL Lymphocytes # 0.7 L (1.0-4.8) k/uL Potassium 3.1 L (3.5-5.1) mmol/L Glucose 112 H (74-99) mg/dL Calcium 8.3 L (8.4-10.2) mg/dL Coronavirus (PCR) Detected A (Not Detectd)
[2022-03-24] MEDS ORDERED: LACOSAMIDE 150 MG TABLET PO SCH (21:00)
[2022-03-24] MEDS ORDERED: SERTRALINE 100 MG TAB PO SCH (21:00)
[2022-03-24] MEDS: lamoTRIgine 100 MG TAB PO SCH (21:08)
[2022-03-24] MEDS: LACOSAMIDE 50 MG TABLET PO SCH (21:08)
[2022-03-24] MEDS ORDERED: ATORVASTATIN 20 MG TAB PO SCH (21:45)
[2022-03-25] MEDS ORDERED: modafiniL 100 MG TAB PO SCH (08:00)
[2022-03-25] MEDS ORDERED: ENOXAPARIN 40 MG/0.4 ML SYRINGE SQ SCH (09:00)
[2022-03-25] MEDS ORDERED: ASPIRIN 81 MG PO SCH (09:00)
[2022-03-25] MEDS ORDERED: CHOLECALCIFEROL 25 MCG (1000 IU) TABLET PO SCH (09:00)
[2022-03-25] MEDS ORDERED: PRIMIDONE 250 MG TAB PO SCH (09:00)
[2022-03-25] MEDS: LACOSAMIDE 50 MG TABLET PO SCH (09:11)
[2022-03-25] MEDS: lamoTRIgine 100 MG TAB PO SCH (09:11)
[2022-03-25 09:40] VITALS: BP 111/75; PULSE 61; RESP 16; TEMP 98.3
[2022-03-25 12:36] LABS: Magnesium 2.1 mg/dL (1.5-2.4)
[2022-03-25 12:41] LABS: African American GFR (CKD) 119.1 (60.0-200.0); BUN/Creat Ratio 8.11 Ratio (12.00-20.00); Blood Urea Nitrogen 7.3 mg/dL (9.0-27.0); Calcium 8.5 mg/dL (8.7-10.3); Carbon Dioxide 26.9 mmol/L (20.0-27.5); Chloride 105 mmol/L (96-109); Glucose 91 mg/dL (70-110); Non-African American GFR(CKD) 102.8 (60.0-200.0); Potassium 3.7 mmol/L (3.5-5.5); Sodium 142 mmol/L (135-145)
--- NOTE | 2022-03-25 13:00 | P.DS ---
Providers Date of admission: 03/24/22 13:54 Expected date of discharge: 03/25/22 Attending physician: Paul Burgess MD Primary care physician: Jose Enciso Hospital Course: Discharge Diagnosis: Asymptomatic COVID-19 infection Generalized weakness Chronic tremor Dizziness Hypokalemia Thrombocytopenia Leukopenia Epilepsy Chronic back pain CHARITO Chronic left hemiparesis Hospital Course: Patient is a 46-year-old male with past medical history of epilepsy, cerebral palsy, chronic left hemiparesis secondary to right brain surgery, obesity, CHARITO on CPAP, lumbar arthritis presenting with increased imbalance, difficulty walk ing, dizziness. He was found to have asymptomatic COVID-19 infection. He denies any shortness of breath or cough. Orthostatic vitals were negative. He was also found to have potassium of 3.1, repleted. TSH and B12 levels were normal. Patient was observed overnight. He was able to ambulate per nursing without any significant dizziness or imbalance. Patient will be discharged home with close follow-up with PCP Patient seen and examined at bedside. Vital signs reviewed and stable. General: nontoxic, no distress, appears at stated age Derm: warm, dry Head: atraumatic, normocephalic, symmetric Eyes: EOMI, no lid lag, anicteric sclera, pupils equal round reactive to light ENT: Nose and ears atraumatic, no thrush, no pharyngeal erythema Neck: No thyromegaly, trachea midline, supple Mouth: no lip lesion, mucus membranes moist Cardiovascular: S1S2 reg, no murmur, no edema Lungs: clear to auscultation bilateral, no rhonchi, no rales, no wheeze, no accessory muscle use Abdominal: soft, nontender to palpation, no guarding, no appreciable organomegaly, normal bowel sounds Ext: Left arm contracture, right hand resting tremor, lower extremity bilateral strength 5/5, left arm strength 5 out of 5 Neuro: Dysarthria, light touch intact all 4 extremities Psych: Alert, oriented, appropriate affect A total of 38 minutes of time were spent preparing this complex discharge summary. Patient was discharged on at 12:56. Patient Condition at Discharge: Stable Plan - Discharge Summary Discharge Rx Participant: Yes New Discharge Prescriptions: Continue Sertraline HCl [Zoloft] 200 mg PO HS lamoTRIgine [LaMICtal] 400 mg PO Q12H Lacosamide [Vimpat] 150 mg PO Q12H modafiniL [Provigil] 100 mg PO BID@0800,1500 Primidone [Mysoline] 250 mg PO DAILY Cholecalciferol [Vitamin D3 (25 Mcg = 1000 Iu)] 50 mcg PO DAILY Aspirin EC [Ecotrin Low Dose] 81 mg PO DAILY Hydrocodone/Acetaminophen [Hydrocodone/Acetaminophen 5-325] 1 tab PO DAILY PRN PRN Reason: Pain Discharge Medication List Sertraline HCl [Zoloft] 200 mg PO HS 02/16/15 [History] lamoTRIgine [LaMICtal] 400 mg PO Q12H 02/16/15 [History] Lacosamide [Vimpat] 150 mg PO Q12H 05/29/17 [History] modafiniL [Provigil] 100 mg PO BID@0800,1500 05/29/17 [History] Aspirin EC [Ecotrin Low Dose] 81 mg PO DAILY 03/24/22 [History] Cholecalciferol [Vitamin D3 (25 Mcg = 1000 Iu)] 50 mcg PO DAILY 03/24/22 [History] Hydrocodone/Acetaminophen [Hydrocodone/Acetaminophen 5-325] 1 tab PO DAILY PRN 1 [History] Primidone [Mysoline] 250 mg PO DAILY 03/24/22 [History] Follow up Appointment(s)/Referral(s): Jose Enciso MD [Primary Care Provider] - 1-2 days Patient Instructions/Handouts: COVID-19 (Coronavirus Disease 2019) (DC) Activity/Diet/Wound Care/Special Instructions: Please see PCP in 1-2 days Discharge Disposition: HOME SELF-CARE
== END 2022-03-25 13:27 | disposition home or self-care (01) ==
LOC: EC 09:56 → 6NMEDSUR 13:54
PROVIDERS: ADMIT Internal Medicine; ATTEND Internal Medicine
DX: U07.1 COVID-19 (principal); G80.9 Cerebral palsy, unspecified; E87.6 Hypokalemia; D69.6 Thrombocytopenia, unspecified; D72.819 Decreased white blood cell count, unspecified; G40.909 Epilepsy, unspecified, not intractable, without status epilepticus; G93.89 Other specified disorders of brain; G47.33 Obstructive sleep apnea (adult) (pediatric); G89.29 Other chronic pain; M47.816 Spondylosis without myelopathy or radiculopathy, lumbar region; R11.0 Nausea; R26.2 Difficulty in walking, not elsewhere classified; R42 Dizziness and giddiness; R53.1 Weakness; E66.9 Obesity, unspecified; Z68.37 Body mass index [BMI] 37.0-37.9, adult; F32.A Depression, unspecified; G97.82 Other postprocedural complications and disorders of nervous system; G81.94 Hemiplegia, unspecified affecting left nondominant side; Y83.8 Other surgical procedures as the cause of abnormal reaction of the patient, or of later complication, without mention of misadventure at the time of the procedure; Z86.73 Personal history of transient ischemic attack (TIA), and cerebral infarction without residual deficits; Z79.82 Long term (current) use of aspirin; Z79.899 Other long term (current) drug therapy; Z88.1 Allergy status to other antibiotic agents; Z88.6 Allergy status to analgesic agent; Z88.8 Allergy status to other drugs, medicaments and biological substances; Z98.890 Other specified postprocedural states
CPT/HCPCS: 96372; 99285; 36415; 80048 ×2; 84443; 82607; 83735; 85025; 87502; 87635; 70450; G0378 ×2; J1650

== ENCOUNTER 2022-06-22 10:29 | Emergency (ER) | payer MEDICARE, OTHER ==
[2022-06-22 10:39] VITALS: RESP 18; TEMP 98.4
--- NOTE | 2022-06-22 11:15 | ED ---
Seizure HPI - General Chief Complaint: Seizure Stated Complaint: confusion Time Seen by Provider: 06/22/22 10:42 Source: patient, family, EMS, RN notes reviewed Mode of arrival: EMS Limitations: physical limitation - History of Present Illness Initial Comments: This is a 46-year-old male who presents to the emergency department for tremors. He is a patient at [facility], and states that he followed up with the physician emergency room physician assistant, Sylvain Hurt there on 06/14. He had been on 250 mg of primidone for tremors in the right hand, which had developed over the last year. During that office visit, the primidone was reduced 100 mg and he was started on Depakote. His mother states that since then, the tremors have become progressively worse and are now occurring in the right leg as well. She is requesting to discontinue the Depakote and resume the primidone at 250mg. Currently denying any confusion or seizure activity as listed in the nursing note. He has not had a seizure in approximately 5 years, and states that he has an aura before they occur, which he is not currently experiencing. Denies any fevers, chills, sore throat, cough, dyspnea, chest pain, palpitations, abdominal pain, nausea, vomiting, diarrhea, back pain, or headaches. MD Complaint: shaking - Related Data Home Medications Medication Instructions Recorded Confirmed Sertraline HCl [Zoloft] 200 mg PO HS 02/16/15 06/22/22 lamoTRIgine [LaMICtal] 400 mg PO Q12H 02/16/15 06/22/22 Lacosamide [Vimpat] 150 mg PO Q12H 05/29/17 06/22/22 Aspirin EC [Ecotrin Low Dose] 81 mg PO DAILY 03/24/22 06/22/22 Cholecalciferol [Vitamin D3 (25 50 mcg PO DAILY 03/24/22 06/22/22 Mcg = 1000 Iu)] Hydrocodone/Acetaminophen 1 tab PO DAILY PRN 03/24/22 06/22/22 [Hydrocodone/Acetaminophen 5-325] Atorvastatin [Lipitor] 20 mg PO HS 06/22/22 06/22/22 Divalproex [Depakote] 250 mg PO BID 06/22/22 06/22/22 Primidone [Mysoline] 100 mg PO HS 06/22/22 06/22/22 modafiniL [Provigil] 100 mg PO BID@0800,1500 06/22/22 06/22/22 Allergies Allergy/AdvReac Type Severity Reaction Status Date / Time vancomycin Allergy Rash/Hives Verified 03/24/22 12:55 meclizine HCl [From Antivert] AdvReac SEIZURE Verified 03/24/22 12:55 naproxen [From Naprosyn] AdvReac SEIZURE Verified 03/24/22 12:55 Review of Systems ROS Statement: Those systems with pertinent positive or pertinent negative responses have been documented in the HPI. ROS Other: All systems not noted in ROS Statement are negative. 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 Absent: respiratory distress, wheezes, rales, rhonchi, stridor Cardiovascular Exam: Present: regular rate, normal rhythm, normal heart sounds. Absent: systolic murmur, diastolic murmur, rubs, gallop, clicks Neurological exam: Present: alert, oriented X3, other (Tremors to the right arm and leg, most prominent in the right hand.) Psychiatric exam: Present: normal affect, normal mood Skin exam: Present: warm, dry, intact, normal color. Absent: rash Course Vital Signs 06/22/22 06/22/22 10:33 13:26 Temperature 98.4 F Pulse Rate 60 84 Respiratory 18 18 Rate Blood Pressure 199/164 110/90 O2 Sat by Pulse 95 96 Oximetry Medical Decision Making - Medical Decision Making This is a 46-year-old male who presents to the emergency department for tremors. Was pt. sent in by a medical professional or institution? @ -No Did you speak to anyone other than the patient for history? @ -EMS and his mother Did you review nursing and triage notes? @ -No, he is not experiencing seizure activity or confusion. Were old charts reviewed? @ -No Differential Diagnosis? @ -Drug-induced tremor, psychogenic tremor, intention tremor, postural tremor, essential tremor, brain lesion or mass, stroke, multiple sclerosis, Parkinson's, this is not meant to be an all-inclusive list. What testing was considered but not performed? (CT, X-rays, U/S, labs)? Why? @ -None What meds were considered but not given? Why? @ -None Did you discuss the management of the patient with other professionals? @ -No Did you reconcile home meds? @ -No Was smoking cessation discussed for >3mins.? @ -No Was critical care preformed (if so, how long)? @ -No Were there social determinants of health that impacted care today? How? (Fernando elessness, low income, unemployed, alcoholism, drug addiction, transportation, low edu. Level, literacy, decrease access to med. care, long term, rehab)? @ -No Was there de-escalation of care discussed even if they declined? (Discuss DNR or withdrawal of care, Hospice)? @ -No What co-morbidities impacted this encounter? (DM, HTN, Smoking, COPD, CAD, Cancer, CVA, Hep., AIDS, mental health diagnosis, sleep apnea, morbid obesity)? @ -Cerebral palsy, epilepsy, CVA/TIA, tremors Was patient admitted / discharged? @ -Discharged. I spoke with the office of the patient's physician emergency room physician assistant at [facility]. I discussed the patient's mother's ignacio rns with them, they are agreeable to discontinuing the Depakote and resuming the primidone at 250 mg at night. This was discussed with the patient's mother. She denies the need for any medication refills. Instructed them to follow up with neurology in the next week to ensure that symptoms are continuing to improve. Drug Therapy requiring intensive monitoring for toxicity (Heparin, Nitro, Insulin, Cardizem)? @ -None Were any procedures done? @ -None Diagnosis/symptom? @ -Tremors Acute, or Chronic, or Acute on Chronic? @ -Acute Uncomplicated (without systemic symptoms) or Complicated (systemic symptoms)? @ -Uncomplicated Side effects of treatment? @ -No treatment administered here, possible worsening of symptoms with the Depakote, or this may be related to the decrease in primidone. Exacerbation, Progression, or Severe Exacerbation] @ -Not applicable Poses a threat to life or bodily function? @ -Yes, he is unable to hold drinks or lift objects due to the tremors. Return precautions reviewed in depth, the patient is instructed to return to the emergency department with any new, worsening, or concerning symptoms. Patient and his mother verbalized understanding. This case was discussed in detail with the attending ED physician. Presentation, findings, and treatment plan discussed in detail as well. - Lab Data Lab Results 06/22/22 Range/Units 13:00 Urine Color Yellow Urine Appearance Clear (Clear) Urine pH 6.5 (5.0-8.0) Ur Specific B[place]in 1.026 (1.001-1.035) Urine Protein Trace H (Negative) Urine Glucose (UA) Negative (Negative) Urine Ketones Negative (Negative) Urine Blood Negative (Negative) Urine Nitrite Negative (Negative) Urine Bilirubin Negative (Negative) Urine Urobilinogen 2.0 (<2.0) mg/dL Ur Leukocyte Esterase Negative (Negative) Disposition Clinical Impression: Tremor Disposition: HOME SELF-CARE Instructions (If sedation given, give patient instructions): Tremors (ED) Additional Instructions: Return to the emergency department with any new, worsening, or concerning symptoms. Stop the Depakote and increase the Primidone to 250 mg, which is the dose you were on previously. Follow up with your primary care provider in 1-2 days and your neurologist to ensure that your symptoms are improving. Is patient prescribed a controlled substance at d/c from ED?: No Referrals: Jose Enciso MD [Primary Care Provider] - 1-2 days
[2022-06-22 13:27] VITALS: BP 110/90; PULSE 84
[2022-06-22 13:41] LABS: Appearance,Urine Clear (Clear); Bilirubin,Urine Negative (Negative); Blood,Urine Negative (Negative); Color,Urine Yellow; Glucose,Urine (UA) Negative (Negative); Ketones,Urine Negative (Negative); Leukocyte Esterase,Urine Negative (Negative); Nitrite,Urine Negative (Negative); PH, Urine 6.5 (5.0-8.0); Protein,Urine Trace (Negative); Specific Gravity,Urine 1.026 (1.001-1.035)
== END 2022-06-22 13:26 | disposition home or self-care (01) ==
LOC: EC 10:29
DX: R25.1 Tremor, unspecified (principal); G47.30 Sleep apnea, unspecified; Z79.82 Long term (current) use of aspirin; Z88.1 Allergy status to other antibiotic agents; Z88.6 Allergy status to analgesic agent; Z88.8 Allergy status to other drugs, medicaments and biological substances; Z86.73 Personal history of transient ischemic attack (TIA), and cerebral infarction without residual deficits
CPT/HCPCS: 81003; 99284

== ENCOUNTER 2024-03-20 14:22 | Emergency (ER) | payer MEDICARE, OTHER ==
[2024-03-20] MEDS: SODIUM CHLORIDE 0.9% 500 ML 500 ML IV STA (15:52)
[2024-03-20] MEDS: ONDANSETRON 4 MG/2 ML VIAL IVP STA (15:53)
[2024-03-20 16:13] LABS: Anisocytosis Slight; Basophils % (A) 1 %; Eosinophils # (A) 0.1 k/uL (0-0.7); Eosinophils % (A) 1 %; HCT 41.7 % (39.0-53.0); HGB 13.5 gm/dL (13.0-17.5); Hypochromasia Slight; Lymphocytes # (A) 0.7 k/uL (1.0-4.8); Lymphocytes % (A) 10 %; MCH 28.4 pg (25.0-35.0); MCHC 32.3 g/dL (31.0-37.0); Mean Platelet Volume 7.7; Monocytes # (A) 0.2 k/uL (0-1.0); Monocytes % (A) 4 %; Neutrophils # (A) 5.5 k/uL (1.3-7.7); Neutrophils % (A) 84 %; Platelet Count 228 k/uL (150-450); RBC 4.74 m/uL (4.30-5.90); RDW 16.5 % (11.5-15.5); WBC 6.5 k/uL (3.8-10.6)
[2024-03-20 16:30] LABS: ALT <6 U/L (4-49); AST 13 U/L (17-59); African American GFR (CKD) >90 (>60 ml/min/1.73 sqM); Albumin 3.6 g/dL (3.5-5.0); Alkaline Phosphatase 108 U/L (38-126); Anion Gap 7 mmol/L; Blood Urea Nitrogen 11 mg/dL (9-20); Calcium 8.7 mg/dL (8.4-10.2); Carbon Dioxide 27 mmol/L (22-30); Chloride 103 mmol/L (98-107); Glucose 116 mg/dL (74-99); Non-African American GFR(CKD) >90 (>60 ml/min/1.73 sqM); Potassium 4.1 mmol/L (3.5-5.1); Sodium 137 mmol/L (137-145); Total Bilirubin 0.5 mg/dL (0.2-1.3); Total Protein 6.1 g/dL (6.3-8.2)
--- NOTE | 2024-03-20 16:38 | ED ---
Overdose HPI - General Chief Complaint: Overdose Stated Complaint: accidental OD Time Seen by Provider: 03/20/24 15:03 Source: patient, EMS Mode of arrival: EMS Limitations: physical limitation (Developmental delay) - History of Present Illness Initial Comments: This patient is 48-year-old man who is here from [facility] home to have evaluation of accidental overdose. The patient's caregiver usually puts out his morning dose of medicines and then after he takes that he puts out the evening dose. The patient had taken the morning dose a little late, had a nap and then when he woke he took the evening dose only a couple of hours after the first dose and they were concerned about overdose. This resulted in the patient taking total dose of Lamictal 800 mg, Vimpat 300 mg, Zoloft 200 mg, modafinil 200 mg, aspirin 81 mg, metoprolol 50 mg, atorvastatin 200 mg primidone 300 mg carbidopa/levodopa 100 mg / 400 mg. The patient did have a couple of episodes of vomiting. When I reviewed the patient, he denies pain. He denies dyspnea. He is requesting tomas knox MD Complaint: accidental overdose -: minutes(s) Intent: other (Accidental administration) How Overdose Was Discovered: family/friend present at time Treatments Prior to Arrival: none - Related Data Home Medications Medication Instructions Recorded Confirmed Sertraline HCl [Zoloft] 200 mg PO HS 02/16/15 08/01/22 lamoTRIgine [LaMICtal] 400 mg PO Q12H 02/16/15 08/01/22 Lacosamide [Vimpat] 150 mg PO Q12H 05/29/17 08/01/22 Aspirin EC [Ecotrin Low Dose] 81 mg PO DAILY 03/24/22 08/01/22 Cholecalciferol [Vitamin D3 (25 50 mcg PO DAILY 03/24/22 08/01/22 Mcg = 1000 Iu)] Hydrocodone/Acetaminophen 1 tab PO DAILY PRN 03/24/22 08/01/22 [Hydrocodone/Acetaminophen 5-325] Atorvastatin [Lipitor] 20 mg PO HS 06/22/22 08/01/22 modafiniL [Provigil] 100 mg PO BID@0800,1400 06/22/22 08/01/22 Omeprazole 40 mg PO DAILY 08/01/22 08/01/22 Primidone [Mysoline] 250 mg PO BID 08/01/22 08/01/22 cycloSPORINE 0.05% OPHTH SOLN 1 applicator BOTH EYES Q12H 08/01/22 08/01/22 [Restasis] Previous Rx's Medication Instructions Recorded Cyanocobalamin [Vitamin B-12] 1,000 mcg PO DAILY 30 Days #60 08/03/22 tablet Folic Acid 1 mg PO DAILY #30 tablet 08/03/22 Metoprolol Tartrate [Lopressor] 25 mg PO BID 30 Days #60 tablet 08/03/22 Allergies Allergy/AdvReac Type Severity Reaction Status Date / Time vancomycin Allergy Rash/Hives Verified 08/01/22 12:48 meclizine HCl [From Antivert] AdvReac SEIZURE Verified 08/01/22 12:48 naproxen [From Naprosyn] AdvReac SEIZURE Verified 08/01/22 12:48 Review of Systems ROS Statement: Those systems with pertinent positive or pertinent negative responses have been documented in the HPI. ROS Other: All systems not noted in ROS Statement are negative. Constitutional: Denies: fever, weakness Respiratory: Denies: cough, dyspnea Cardiovascular: Denies: chest pain Gastrointestinal: Reports: vomiting. Denies: abdominal pain, hematemesis Musculoskeletal: Denies: back pain Neurological: Denies: headache Past Medical History Past Medical History: CVA/TIA, Neurologic Disorder, Seizure Disorder, Sleep Apnea/CPAP/BIPAP Additional Past Medical History / Comment(s): cerebral palsy, tremors, epilepsy History of Any Multi-Drug Resistant Organisms: None Reported Past Surgical History: Hernia Repair, Orthopedic Surgery Additional Past Surgical History / Comment(s): 37% brain removed r/t seizures, left hand surgery, left foot surgery Past Anesthesia/Blood Transfusion Reactions: No Reported Reaction Past Psychological History: No Psychological Hx Reported Smoking Status: Never smoker Past Alcohol Use History: None Reported Past Drug Use History: None Reported General Exam Limitations: physical limitation General appearance: alert, in no apparent distress Head exam: Present: atraumatic, normocephalic Eye exam: Present: normal appearance, PERRL. Absent: scleral icterus, conjunctival injection, nystagmus Neck exam: Present: normal inspection, full ROM. Absent: tenderness, meni ngismus Respiratory exam: Present: normal lung sounds bilaterally. Absent: respiratory distress, wheezes, rales, rhonchi, stridor, accessory muscle use Cardiovascular Exam: Present: regular rate, normal rhythm, normal heart sounds. Absent: systolic murmur, diastolic murmur, rubs, gallop GI/Abdominal exam: Present: soft. Absent: distended, tenderness, guarding, rebound, rigid, mass Extremities exam: Present: normal inspection, normal capillary refill. Absent: pedal edema, calf tenderness Back exam: Present: normal inspection. Absent: CVA tenderness (R), CVA tendern ess (L) Neurological exam: Present: alert Skin exam: Present: warm, dry, intact, normal color. Absent: rash Course Vital Signs 03/20/24 03/20/24 03/20/24 14:40 15:10 16:00 Temperature Pulse Rate 57 L 60 54 L Respiratory 17 16 15 Rate Blood Pressure 118/82 115/70 104/66 O2 Sat by Pulse 92 L 97 99 Oximetry 03/20/24 03/20/24 16:10 18:04 Temperature 98.1 F Pulse Rate 58 L 61 Respiratory 17 16 Rate Blood Pressure 107/64 103/65 O2 Sat by Pulse 99 99 Oximetry Medical Decision Making - Medical Decision Making Was pt. sent in by a medical professional or institution (, PA, WELL TESTING OPERATOR, urgent care, hospital, or detention...) When possible be specific @ -Sent from [facility] Did you speak to anyone other than the patient for history (EMS, parent, family, police, friend...)? What history was obtained from this source @ -[Patient's caregiver did give some history Did you review nursing and triage notes (agree or disagree)? Why? @ -[I reviewed and agree with nursing and triage notes] Were old charts reviewed (outside hosp., previous admission, EMS record, old EKG, old radiological studies, urgent care reports/EKG's, detention records)? Report findings @ -[No old charts were reviewed] Differential Diagnosis (chest pain, altered mental status, abdominal pain women, abdominal pain men, vaginal bleeding, weakness, fever, dyspnea, syncope, headache, dizziness, GI bleed, back pain, seizure, CVA, palpatations, mental health, musculoskeletal)? @ -[The differential diagnosis includes overdose EKG interpreted by me (3pts min.). @ -[As above] X-rays interpreted by me (1pt min.). @ -[None done] CT interpreted by me (1pt min.). @ -[None done] U/S interpreted by me (1pt. min.). @ -[None done] What testing was considered but not performed or refused? (CT, X-rays, U/S, labs)? Why? @ -[None] What meds were considered but not given or refused? Why? @ -[None] Did you discuss the management of the patient with other professionals (professionals i.e. , PA, WELL TESTING OPERATOR, lab, RT, psych nurse, social media editor, care program resident, teacher, loan workout officer, caser in)? Give summary @ -[No] Was smoking cessation discussed for >3mins.? @ -[No] Was critical care preformed (if so, how long)? @ -[No] Were there social determinants of health that impacted care today? How? (Homelessness, low income, unemployed, alcoholism, drug addiction, transportation, low edu. Level, literacy, decrease access to med. care, skilled nursing, rehab)? @ -[No] Was there de-escalation of care discussed even if they declined (Discuss DNR or withdrawal of care, Hospice)? DNR status @ -[No] What co-morbidities impacted this encounter? (DM, HTN, Smoking, COPD, CAD, Cancer, CVA, ARF, Chemo, Hep., AIDS, mental health diagnosis, sleep apnea, morbid obesity)? @ -[None] Was patient admitted / discharged? Hospital course, mention meds given and route, prescriptions, significant lab abnormalities, going to OR and other pertinent info. @ -[Patient is 48-year-old man here with accidental administration of his next course of medications. The patient clinically looks well and can follow-up on a as needed basis. We discussed appropriate further care as well as return parameters. Undiagnosed new problem with uncertain prognosis? @ -[No] Drug Therapy requiring intensive monitoring for toxicity (Heparin, Nitro, Insulin, Cardizem)? @ -[No] Were any procedures done? @ -[No] Diagnosis/symptom? @ -[Accidental medication administration, acute Acute, or Chronic, or Acute on Chronic? @ -[Acute Uncomplicated (without systemic symptoms) or Complicated (systemic symptoms)? @ -[Uncomplicated Side effects of treatment? @ -[No] Exacerbation, Progression, or Severe Exacerbation? @ -[No] Poses a threat to life or bodily function? How? (Chest pain, USA, CA, pneumonia, PE, COPD, DKA, ARF, appy, cholecystitis, CVA, Diverticulitis, Homicidal, Suicidal, threat to staff... and all critical care pts) @ -[No] - Lab Data Result diagrams: 03/20/24 15:52 03/20/24 15:52 Lab Results 03/20/24 03/20/24 Range/Units 15:52 15:52 WBC 6.5 (3.8-10.6) k/uL RBC 4.74 (4.30-5.90) m/uL Hgb 13.5 (13.0-17.5) gm/dL Hct 41.7 (39.0-53.0) % MCV 88.0 (80.0-100.0) fL MCH 28.4 (25.0-35.0) pg MCHC 32.3 (31.0-37.0) g/dL RDW 16.5 H (11.5-15.5) % Plt Count 228 (150-450) k/uL MPV 7.7 Neutrophils % 84 % Lymphocytes % 10 % Monocytes % 4 % Eosinophils % 1 % Basophils % 1 % Neutrophils # 5.5 (1.3-7.7) k/uL Lymphocytes # 0.7 L (1.0-4.8) k/uL Monocytes # 0.2 (0-1.0) k/uL Eosinophils # 0.1 (0-0.7) k/uL Basophils # 0.0 (0-0.2) k/uL Hypochromasia Slight Anisocytosis Slight Sodium 137 (137-145) mmol/L Potassium 4.1 (3.5-5.1) mmol/L Chloride 103 (98-107) mmol/L Carbon Dioxide 27 (22-30) mmol/L Anion Gap 7 mmol/L BUN 11 (9-20) mg/dL Creatinine 0.52 L (0.66-1.25) mg/dL Est GFR (CKD-EPI)AfAm >90 (>60 ml/min/1.73 sqM) Est GFR (CKD-EPI)NonAf >90 (>60 ml/min/1.73 sqM) Glucose 116 H (74-99) mg/dL Calcium 8.7 (8.4-10.2) mg/dL Total Bilirubin 0.5 (0.2-1.3) mg/dL AST 13 L (17-59) U/L ALT <6 (4-49) U/L Alkaline Phosphatase 108 (38-126) U/L Total Protein 6.1 L (6.3-8.2) g/dL Albumin 3.6 (3.5-5.0) g/dL Disposition Clinical Impression: Accidental drug overdose Disposition: HOME SELF-CARE Condition: Good Instructions (If sedation given, give patient instructions): Adult Overdose (ED) Additional Instructions: As we discussed, take no further medications today. Resume your normal medication dosing tomorrow. Return if any new symptoms develop. Is patient prescribed a controlled substance at d/c from ED?: No Referrals: Jose Enciso MD [Primary Care Provider] - 1-2 days
[2024-03-20 18:10] VITALS: BP 103/65; PULSE 61; RESP 16; TEMP 98.1
== END 2024-03-20 18:22 | disposition home or self-care (01) ==
LOC: EC 14:22
CPT/HCPCS: 36415; 80053; 85025; 96361; 96374; 99285

== ENCOUNTER 2024-05-25 03:32 | Emergency (ER) | payer MEDICARE, OTHER ==
[2024-05-25 03:41] VITALS: RESP 16; TEMP 98.6
--- NOTE | 2024-05-25 04:32 | CT ---
EXAMINATION TYPE: CT brain yumiko wo con DATE OF EXAM: 05/25/2024 4:18 AM COMPARISON: 08/01/2022 CLINICAL INDICATION: Male, 48 years old with history of fall, Pt. has Parkinson's- weakness and tremo rs at baseline. Pt. stood up, tripped and fell hitting head on ground. Denies LOC. Denies thinners. P t. has hematoma on right brow. AOx4. Injury prior to arrival. TECHNIQUE: CT of the brain is performed utilizing 3 mm thick sections through the posterior fossa and 3 mm thick sections through the remaining calvarium. Study is performed within 24 hours of arrival to the hospital. Contrast used: mL of , (none if empty) CT DLP: 1177 mGycm, Automated exposure control for dose reduction was used. FINDINGS: No abnormal hyperdensity is present to suggest an acute intracranial hemorrhage. No mass lesion is evident. No acute infarcts are evident. There is old prior right frontal, right parietal right occipital lobe infarcts with ex vacuole effect. Ventricles and sulci are appropriate for the patient age. No midline shift is evident. Soft tissue swelling is over the right orbital region. Prior right craniotomy evident. Paranasal sinuses and mastoid air cells within the [id number] are clear. IMPRESSIONS: 1. No acute intracranial process. Follow-up MRI can be performed as clinically indicated. 2. 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 COMPARISON: None TECHNIQUE: CT of the cervical spine is performed in the axial plane at 2 mm thick sections. Reconstr ucted images in the coronal, and sagittal plane are reviewed on the computer. FINDINGS: No acute fractures are evident. Vertebral body alignment is patent. Disc heights are preserved. Some anterior vertebral body spurring is present C5-6. Vertebral body heights are preserved. No spinal canal stenosis is evident. No neural foraminal stenosis is evident. IMPRESSION: 1. No acute osseous abnormalities cervical spine [facility], , 05/25/2024 4:30 AM
--- NOTE | 2024-05-25 04:35 | CT ---
EXAMINATION TYPE: CT facial bones wo con DATE OF EXAM: 05/25/2024 4:16 AM COMPARISON: 09/30/2021 CLINICAL INDICATION: Male, 48 years old with history of Fall, Pt. has Parkinson's- weakness and tremo rs at baseline. Pt. stood up, tripped and fell hitting head on ground. Denies LOC. Denies thinners. P t. has hematoma on right brow. AOx4. Injury prior to arrival. TECHNIQUE: The paranasal sinuses are examined in the axial plane at 2 mm thick sections. Reconstruct ed images in the coronal plane were obtained. Contrast used: mL of , (none if empty) Oral contrast used: (none if empty) CT DLP: 1177 mGycm, Automated exposure control for dose reduction was used. FINDINGS: Maxillary spine is intact. Maxillary zambrano appear intact. Greater wings of the sphenoid are normal. Z ygomatic arches are intact. Temporomandibular junctions appear normal. Mandible and maxilla appear in tact. The patient is edentulous. Nasal bones are intact Soft tissue swelling is over the right orbital region and right cheek. Underlying osseous structures appear intact. The maxillary sinuses are clear. The ethmoid air cells are clear. The sphenoid sinuses are clear. The frontal sinuses are clear. The septum is evaluated. There is septal deviation to the right. The ostiomeatal units are patent. IMPRESSION: 1. No acute fractures are evident. 2. Soft tissue swelling right periorbital region [facility], , 05/25/2024 4:33 AM
--- NOTE | 2024-05-25 05:42 | ED ---
Fall HPI - General Chief Complaint: Fall Stated Complaint: Fall Time Seen by Provider: 05/25/24 04:03 Source: patient, EMS Mode of arrival: wheelchair - History of Present Illness Initial Comments: Patient is a pleasant 48-year-old gentleman with a past medical history of Parkinson's, cerebral palsy and epilepsy presenting for mechanical trip and fall. Patient typically uses a wheelchair and did try to get up to the bathroom and as he was walking tripped and fell forward hitting his face. He did not lose consciousness and was able to get up afterwards. Sustained a contusion to the right eyebrow. Denies confusion nausea, vomiting or headaches. Denies dizziness or additional injury. Denies neck neck pain numbness or weakness. Is on a baby aspirin but no blood thinners. - Related Data Home Medications Medication Instructions Recorded Confirmed Sertraline HCl [Zoloft] 200 mg PO HS 02/16/15 08/01/22 lamoTRIgine [LaMICtal] 400 mg PO Q12H 02/16/15 08/01/22 Lacosamide [Vimpat] 150 mg PO Q12H 05/29/17 08/01/22 Aspirin EC [Ecotrin Low Dose] 81 mg PO DAILY 03/24/22 08/01/22 Cholecalciferol [Vitamin D3 (25 50 mcg PO DAILY 03/24/22 08/01/22 Mcg = 1000 Iu)] Hydrocodone/Acetaminophen 1 tab PO DAILY PRN 03/24/22 08/01/22 [Hydrocodone/Acetaminophen 5-325] Atorvastatin [Lipitor] 20 mg PO HS 06/22/22 08/01/22 modafiniL [Provigil] 100 mg PO BID@0800,1400 06/22/22 08/01/22 Omeprazole 40 mg PO DAILY 08/01/22 08/01/22 Primidone [Mysoline] 250 mg PO BID 08/01/22 08/01/22 cycloSPORINE 0.05% OPHTH SOLN 1 applicator BOTH EYES Q12H 08/01/22 08/01/22 [Restasis] Previous Rx's Medication Instructions Recorded Cyanocobalamin [Vitamin B-12] 1,000 mcg PO DAILY 30 Days #60 08/03/22 tablet Folic Acid 1 mg PO DAILY #30 tablet 08/03/22 Metoprolol Tartrate [Lopressor] 25 mg PO BID 30 Days #60 tablet 02/23/23 Allergies Allergy/AdvReac Type Severity Reaction Status Date / Time vancomycin Allergy Rash/Hives Verified 05/25/24 03:41 meclizine HCl [From Antivert] AdvReac SEIZURE Verified 05/25/24 03:41 naproxen [From Naprosyn] AdvReac SEIZURE Verified 05/25/24 03:41 Review of Systems ROS Statement: Those systems with pertinent positive or pertinent negative responses have been documented in the HPI. ROS Other: All systems not noted in ROS Statement are negative. 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 Patient to the right eyebrow EYES: Pupils are equally round, extraocular movements intact without nystagmus, clear conjunctiva, non-icteric sclera HENT: Normocephalic, contusion to the right eyebrow, otherwise atraumatic, moist mucus membranes, oropharynx clear without exudates NECK: , C-collar in place, no midline spinal tenderness to palpation PULMONARY: Clear to auscultation without wheezes, rhonchi, or rales, normal excursion, no accessory muscle use and no stridor CARDIOVASCULAR: Regular rate, rhythm, normal S1 and S2. No appreciated murmurs, rubs or gallops. Strong radial pulses with intact distal perfusion. No lower extremity edema GASTROINTESTINAL: Soft, active bowel sounds throughout, non-tender, non- distended, no palpable masses, no rebound or guarding. No hepatosplenomegaly MUSCULOSKELETAL: Extremities have no gross deformity, no edema, redness, or swelling. No calf swelling NEUROLOGIC:_a/o x 3, GCS 15, normal mentation and speech. Moves all extremities x 4 without motor or sensory deficit PSYCHIATRIC:_normal mood and affect, thought process is clear and linear Limitations: no limitations Course Vital Signs 05/25/24 05/25/24 03:37 06:30 Temperature 98.6 F Pulse Rate 61 76 Respiratory 16 16 Rate Blood Pressure 156/84 131/84 O2 Sat by Pulse 98 98 Oximetry Medical Decision Making - Medical Decision Making Was pt. sent in by a medical professional or institution (, PA, AIRPLANE CAPTAIN, urgent care, hospital, or fpc...) When possible be specific @ -No Did you speak to anyone other than the patient for history (EMS, parent, family, police, friend...)? What history was obtained from this source @I spoke with patient's mother who lives with the patient Did you review nursing and triage notes (agree or disagree)? Why? @ -I reviewed and agree with nursing and triage notes Were old charts reviewed (outside hosp., previous admission, EMS record, old EKG, old radiological studies, urgent care reports/EKG's, fpc records)? Report findings @Medical records reviewed Differential Diagnosis (chest pain, altered mental status, abdominal pain women, abdominal pain men, vaginal bleeding, weakness, fever, dyspnea, syncope, headache, dizziness, GI bleed, back pain, seizure, CVA, palpatations, mental health, musculoskeletal)? @Differential Musculoskeletal Muscular strain, contusion, ligament sprain, fracture, , muscle spasm, nerve compression, concussion, traumatic intracranial hemorrhage, C spine fracture.. This is not meant to be in all inclusive list EKG interpreted by me (3pts min.). @ -As above X-rays interpreted by me (1pt min.). @ -None done CT interpreted by me (1pt min.). @No evidence of hemorrhage or skull fracture, no evidence of c spine fracture or malalignment, no evidence of facial fracture U/S interpreted by me (1pt. min.). @ -None done What testing was considered but not performed or refused? (CT, X-rays, U/S, labs)? Why? @ -None What meds were considered but not given or refused? Why? @ -None Did you discuss the management of the patient with other professionals (professionals i.e. , BRETT, AIRPLANE CAPTAIN, lab, RT, psych nurse, director of social services, medical office representative, teacher, national service officer, rehabilitation case coordinator)? Give summary @ -No Was smoking cessation discussed for >3mins.? @ -No Was critical care preformed (if so, how long)? @ -No Were there social determinants of health that impacted care today? How? (Homelessness, low income, unemployed, alcoholism, drug addiction, transportation, low edu. Level, literacy, decrease access to med. care, prison, rehab)? @ -No Was there de-escalation of care discussed even if they declined (Discuss DNR or withdrawal of care, Hospice)? @ -No What co-morbidities impacted this encounter? (DM, HTN, Smoking, COPD, CAD, Cancer, CVA, ARF, Chemo, Hep., AIDS, mental health diagnosis, sleep apnea, morbid obesity)? @ -Parkinson's, cerebral palsy Was patient admitted / discharged? Hospital course, mention meds given and route, prescriptions, significant lab abnormalities, going to OR and other pertinent info. @ -Discharged - Patient is a pleasant 48-year-old gentleman history of Parkinson's cerebral palsy, presenting for mechanical trip and fall today with resultant bruising to the right eyebrow. On assessment patient well-appearing in no acute distress. C-collar in place. No midline spinal tenderness to palpation. Contusion to the right eyebrow, EOM intact, globe is intact. Extremities, trunk atraumatic. CT brain, C-spine CT max face were obtained. Showed no acute process. After reviewing patient's imaging I updated patient to imaging findings and cleared their C-Spine. There is no midline cervical neck tenderness or step-offs. The patient denies any numbess, tingling, or weakness of the extremities when moving neck through full ROM. The patient is able to range their neck completely without midline cervical pain, numbness, tingling or weakness. Discussed with patient and mother plan for discharge, they are comfortable discharge home. In my medical judgment there is currently no evidence of an immediate life- threatening or surgical condition. Discharge is therefore indicated at this time. Discharge treatment instructions, follow up instructions, and appropriate emergency department return precautions were discussed with the patient and/or medical decision maker. Patient and/or medical decision maker expressed understanding of and agreed with the treatment plan, follow up instructions, and emergency department return precaution. All patient's and/or medical decision maker's questions were answered. The patient was advised that a small risk still exists that a serious condition could develop and was therefore instructed to return to the ED for any changes in symptoms, persistent symptoms, inability to obtain proper follow-up or for any further concerns. Patient received verbal and written instructions for this condition. Undiagnosed new problem with uncertain prognosis? @ -No Drug Therapy requiring intensive monitoring for toxicity (Heparin, Nitro, Insulin, Cardizem)? @ -No Were any procedures done? @ -No Diagnosis/symptom? @ -Trip and fall, contusion Acute, or Chronic, or Acute on Chronic? @ -Acute Uncomplicated (without systemic symptoms) or Complicated (systemic symptoms)? Uncomplicated Side effects of treatment? @ -No Exacerbation, Progression, or Severe Exacerbation? @ -No Poses a threat to life or bodily function? How? (Chest pain, USA, MS, pneumonia, PE, COPD, DKA, ARF, appy, cholecystitis, CVA, Diverticulitis, Homicidal, Suicidal, threat to staff... and all critical care pts) @ -No Disposition Clinical Impression: Fall, Contusion Disposition: HOME SELF-CARE Condition: Good Additional Instructions: Every disease is a spectrum and a small chance still exists that a serious condition could develop, for this reason, please monitor yourself closely for new, changing or worsening symptoms, feelings of confusion, severe headache, nausea and vomiting fever, inability to tolerate/keep down fluids or your medications, inability to follow up with outpatient providers as instructed and should you experience these symptoms or should you have any further concerns for your wellbeing please return to the ED or call 911 immediately. PLEASE call your primary care physician as soon as possible to arrange / discuss plan for followup appointment. Appointment in the next 1-3 days is strongly encouraged if possible. PLEASE let us know here before you leave if there is anything further we can do to be of any assistance. Take care and feel Better! Is patient prescribed a controlled substance at d/c from ED?: No Referrals: Jose Enciso MD [Primary Care Provider] - 1-2 days
[2024-05-25 06:30] VITALS: BP 131/84; PULSE 76
== END 2024-05-25 06:30 | disposition home or self-care (01) ==
LOC: EC 03:32
DX: S00.11XA Contusion of right eyelid and periocular area, initial encounter (principal); Z88.8 Allergy status to other drugs, medicaments and biological substances; Z88.1 Allergy status to other antibiotic agents; G20.A1 Parkinson's disease without dyskinesia, without mention of fluctuations; G80.9 Cerebral palsy, unspecified; W01.0XXA Fall on same level from slipping, tripping and stumbling without subsequent striking against object, initial encounter; Y93.01 Activity, walking, marching and hiking
CPT/HCPCS: 70450; 70486; 72125; 99284

== ENCOUNTER 2024-10-05 17:10 | Emergency (ER) | payer MEDICARE, OTHER ==
[2024-10-05 17:43] VITALS: TEMP 98
[2024-10-05] MEDS: ACETAMINOPHEN TAB 325 MG TAB PO STA (18:45)
--- NOTE | 2024-10-05 18:49 | XR ---
EXAMINATION TYPE: XR hand limited LT, XR wrist limited LT DATE OF EXAM: 10/05/2024 6:42 PM COMPARISON: None CLINICAL INDICATION: Male, 49 years old with history of fall; PHH, pain TECHNIQUE: XR hand limited LT, XR wrist limited LT 3 views were obtained. FINDINGS: No evidence for acute fracture. There appears to be fusion of the distal radius and wrist a s well as possible fusion of the first digit metatarsophalangeal joint. Evaluation limited due to pat ient positioning. No significant soft tissue swelling. IMPRESSION: 1. No acute osseous pathology. 2. 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 [facility], , 10/05/2024 6:46 PM
--- NOTE | 2024-10-05 19:26 | ED ---
Upper Extremity HPI - General Chief Complaint: Extremity Injury, Upper Stated Complaint: left wrist pain Time Seen by Provider: 10/05/24 18:20 Source: patient Mode of arrival: wheelchair Limitations: no limitations - History of Present Illness Initial Comments: 49-year-old male with a past medical history significant of cerebral palsy presented the ER for evaluation of left wrist injury. Patient states yesterday he accidentally fell landing on his left wrist. Mother, at bedside, reports patient had wrist fused as a child given cerebral palsy. Patient is reporting pain to wrist which is increased with movement. He denies any elbow, shoulder or neck injury/discomfort. Patient denies head injury from fall. No dizziness, lightheadedness, shortness of breath or chest pain prior to fall. Mother reports patient has not taken any analgesic medications at this time. No other complaints. - Related Data Home Medications Medication Instructions Recorded Confirmed Sertraline HCl [Zoloft] 200 mg PO HS 02/16/15 08/01/22 lamoTRIgine [LaMICtal] 400 mg PO Q12H 02/16/15 08/01/22 Lacosamide [Vimpat] 150 mg PO Q12H 05/29/17 08/01/22 Aspirin EC [Ecotrin Low Dose] 81 mg PO DAILY 03/24/22 08/01/22 Cholecalciferol [Vitamin D3 (25 50 mcg PO DAILY 03/24/22 08/01/22 Mcg = 1000 Iu)] Hydrocodone/Acetaminophen 1 tab PO DAILY PRN 03/24/22 08/01/22 [Hydrocodone/Acetaminophen 5-325] Atorvastatin [Lipitor] 20 mg PO HS 06/22/22 08/01/22 modafiniL [Provigil] 100 mg PO BID@0800,1400 06/22/22 08/01/22 Omeprazole 40 mg PO DAILY 08/01/22 08/01/22 Primidone [Mysoline] 250 mg PO BID 08/01/22 08/01/22 cycloSPORINE 0.05% OPHTH SOLN 1 applicator BOTH EYES Q12H 08/01/22 08/01/22 [Restasis] Previous Rx's Medication Instructions Recorded Cyanocobalamin [Vitamin B-12] 1,000 mcg PO DAILY 30 Days #60 08/03/22 tablet Folic Acid 1 mg PO DAILY #30 tablet 02/23/23 Metoprolol Tartrate [Lopressor] 25 mg PO BID 30 Days #60 tablet 08/03/22 Allergies Allergy/AdvReac Type Severity Reaction Status Date / Time vancomycin Allergy Rash/Hives Verified 10/05/24 17:43 meclizine HCl [From Antivert] AdvReac SEIZURE Verified 10/05/24 17:43 naproxen [From Naprosyn] AdvReac SEIZURE Verified 10/05/24 17:43 Review of Systems ROS Statement: Those systems with pertinent positive or pertinent negative responses have been documented in the HPI. ROS Other: All systems not noted in ROS Statement are negative. 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 Absent: respiratory distress, wheezes, rales, rhonchi, stridor Cardiovascular Exam: Present: regular rate, normal rhythm, normal heart sounds. Absent: systolic murmur, diastolic murmur, rubs, gallop, clicks Extremities exam: Present: normal capillary refill (2+ left radial pulse.), other (Chronic wrist flexion deformity to left wrist. No left anatomical snuffbox tenderness. There is mild tenderness to left distal radius. Full ROM of distal digits, elbow and shoulder.) Neurological exam: Present: alert, oriented X3, CN II-XII intact Skin exam: Present: warm, dry, intact, normal color. Absent: rash Course Vital Signs 10/05/24 10/05/24 17:38 19:58 Temperature 98.0 F 98.0 F Pulse Rate 62 63 Respiratory 19 16 Rate Blood Pressure 100/62 111/56 O2 Sat by Pulse 98 97 Oximetry Medical Decision Making - Medical Decision Making Was pt. sent in by a medical professional or institution (, PA, RACEHORSE TRAINER, urgent care, hospital, or group home...) When possible be specific @ -No Did you speak to anyone other than the patient for history (EMS, parent, family, police, friend...)? What history was obtained from this source @ -Patient's mother, at bedside, aiding in HPI and past medical history. Did you review nursing and triage notes (agree or disagree)? Why? @ -I reviewed and agree with nursing and triage notes Were old charts reviewed (outside hosp., previous admission, EMS record, old EKG, old radiological studies, urgent care reports/EKG's, group home records)? Report findings @ -No old charts were reviewed Differential Diagnosis (chest pain, altered mental status, abdominal pain women, abdominal pain men, vaginal bleeding, weakness, fever, dyspnea, syncope, headache, dizziness, GI bleed, back pain, seizure, CVA, palpatations, mental health, musculoskeletal)? @ -Differential Musculoskeletal: Muscular strain, contusion, ligament sprain, fracture, arthritis, septic arthritis, bursitis, cellulitis, muscle spasm, nerve compression, DVT, arterial occlusion, herpes zoster, electrolyte abnormality, tumor.... This is not meant to be in all inclusive list EKG interpreted by me (3pts min.). @ -None done X-rays interpreted by me (1pt min.). @ -Left wrist and hand xrays interpreted by me negative fro acute fractures of dislocation. ] CT interpreted by me (1pt min.). @ -None done U/S interpreted by me (1pt. min.). @ -None done What testing was considered but not performed or refused? (CT, X-rays, U/S, labs)? Why? @ -None What meds were considered but not given or refused? Why? @ -None Did you discuss the management of the patient with other professionals (professionals i.e. BRETT Sales, RACEHORSE TRAINER, lab, RT, psych nurse, social service coordinator, corporate legal secretary, teacher, chief science officer, case finishing machine adjuster)? Give summary @ -No Was smoking cessation discussed for >3mins.? @ -No Was critical care preformed (if so, how long)? @ -No Were there social determinants of health that impacted care today? How? (Homelessness, low income, unemployed, alcoholism, drug addiction, transportation, low edu. Level, literacy, decrease access to med. care, detention, rehab)? @ -No Was there de-escalation of care discussed even if they declined (Discuss DNR or withdrawal of care, Hospice)? DNR status @ -No What co-morbidities impacted this encounter? (DM, HTN, Smoking, COPD, CAD, Cancer, CVA, ARF, Chemo, Hep., AIDS, mental health diagnosis, sleep apnea, morbid obesity)? @ -Cerebral palsy Was patient admitted / discharged? Hospital course, mention meds given and route, prescriptions, significant lab abnormalities, going to OR and other pertinent info. @ -Discharge. 49 year old male presenting to the ER for evaluation of left wrist pain. Vitals stable. Patient is neurovascularly intact. Chronic wrist flexion deformity to left wrist with minimal tenderness to distal radius. Mild tenderness to distal radius. No anatomical snuffbox tenderness. X-ray obtained negative for acute fractures or dislocations. Ankylosis of numerous bones of wrist. Patient given symptomatic control with Tylenol. Upon reevaluation, patient resting comfortably in exam room no signs of acute distress. Results discussed with patient and patient's mother, at bedside, all questions answered. Conservative treatment options discussed with patient. I recommended [id number] Voltaren gel along with rest, ice, elevation. I instructed him to follow-up closely with PCP for reevaluation in the next 1 to 2 days. Return parameters discussed. Patient and patient's mother, at bedside, verbally expressed understanding agreement with care plan. Case discussed with ED attending, Dr. Thompson. Undiagnosed new problem with uncertain prognosis? @ -No Drug Therapy requiring intensive monitoring for toxicity (Heparin, Nitro, Insulin, Cardizem)? @ -No Were any procedures done? @ -No Diagnosis/symptom? @ -Wrist injury Acute, or Chronic, or Acute on Chronic? @ -Acute Uncomplicated (without systemic symptoms) or Complicated (systemic symptoms)? @ -Uncomplicated Side effects of treatment? @ -No Exacerbation, Progression, or Severe Exacerbation? @ -No Poses a threat to life or bodily function? How? (Chest pain, USA, [place], pneumonia, PE, COPD, DKA, ARF, appy, cholecystitis, CVA, Diverticulitis, Homicidal, Suicidal, threat to staff... and all critical care pts) @ -No - Radiology Data Radiology results: report reviewed, image reviewed Disposition Clinical Impression: Wrist injury Disposition: HOME SELF-CARE Condition: Stable Instructions (If sedation given, give patient instructions): Wrist Injury (ED) Additional Instructions: Follow-up closely with PCP. I recommend [id number] Voltaren gel along with Tylenol for pain control. Continue to rest, ice, elevate and use supportive Ankur bandage. Return to the ER for any new or worsening concerns. Is patient prescribed a controlled substance at d/c from ED?: No Referrals: Jose Enciso MD [Primary Care Provider] - 1-2 days Time of Disposition: 19:26
[2024-10-05 21:02] VITALS: BP 111/56; PULSE 63; RESP 16
== END 2024-10-05 19:58 | disposition home or self-care (01) ==
LOC: EC 17:10
DX: S69.92XA Unspecified injury of left wrist, hand and finger(s), initial encounter (principal); G80.9 Cerebral palsy, unspecified; Z88.1 Allergy status to other antibiotic agents; Z88.6 Allergy status to analgesic agent; Z88.8 Allergy status to other drugs, medicaments and biological substances; W18.30XA Fall on same level, unspecified, initial encounter
CPT/HCPCS: 99283

== ENCOUNTER 2024-12-31 10:51 | Emergency (ER) | payer MEDICARE, OTHER ==
[2024-12-31 11:26] VITALS: RESP 20
--- NOTE | 2024-12-31 12:42 | ED ---
Fall HPI - General Chief Complaint: Fall Stated Complaint: Fall-Right Hip Time Seen by Provider: 12/31/24 11:32 Source: patient, RN notes reviewed Mode of arrival: wheelchair Limitations: no limitations - History of Present Illness Initial Comments: This is a 49-year-old male who presents to the emergency department for a fall. Patient has a history of Parkinson's, causing him to lose his balance and fall frequently. 4 days ago he had a fall and landed on his right side. He then had another fall a couple of days later and injured that side again. He continues to have pain to the right hip. However, he is still able to ambulate and move his leg. The pain is the most bothersome when he goes to sit up. Denies hitting his head or sustaining any other injuries during these falls. MD Complaint: fall - Related Data Home Medications Medication Instructions Recorded Confirmed Sertraline HCl [Zoloft] 200 mg PO HS 02/16/15 08/01/22 lamoTRIgine [LaMICtal] 400 mg PO Q12H 02/16/15 08/01/22 Lacosamide [Vimpat] 150 mg PO Q12H 05/29/17 08/01/22 Aspirin EC [Ecotrin Low Dose] 81 mg PO DAILY 03/24/22 08/01/22 Cholecalciferol [Vitamin D3 (25 50 mcg PO DAILY 03/24/22 08/01/22 Mcg = 1000 Iu)] Hydrocodone/Acetaminophen 1 tab PO DAILY PRN 03/24/22 08/01/22 [Hydrocodone/Acetaminophen 5-325] Atorvastatin [Lipitor] 20 mg PO HS 06/22/22 08/01/22 modafiniL [Provigil] 100 mg PO BID@0800,1400 06/22/22 08/01/22 Omeprazole 40 mg PO DAILY 08/01/22 08/01/22 Primidone [Mysoline] 250 mg PO BID 08/01/22 08/01/22 cycloSPORINE 0.05% OPHTH SOLN 1 applicator BOTH EYES Q12H 08/01/22 08/01/22 [Restasis] Previous Rx's Medication Instructions Recorded Cyanocobalamin [Vitamin B-12] 1,000 mcg PO DAILY 30 Days #60 08/03/22 tablet Folic Acid 1 mg PO DAILY #30 tablet 08/03/22 Metoprolol Tartrate [Lopressor] 25 mg PO BID 30 Days #60 tablet 08/03/22 Allergies Allergy/AdvReac Type Severity Reaction Status Date / Time vancomycin Allergy Rash/Hives Verified 12/31/24 11:26 meclizine HCl [From Antivert] AdvReac SEIZURE Verified 12/31/24 11:26 naproxen [From Naprosyn] AdvReac SEIZURE Verified 12/31/24 11:26 Review of Systems ROS Statement: Those systems with pertinent positive or pertinent negative responses have been documented in the HPI. ROS Other: All systems not noted in ROS Statement are negative. 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 Absent: respiratory distress, wheezes, rales, rhonchi, stridor Cardiovascular Exam: Present: regular rate, normal rhythm Extremities exam: Present: other (Mild tenderness to palpation over the right hip. Full range of motion. No shortening or external rotation. 2+ DP and PT pulses) Neurological exam: Present: alert, oriented X3, CN II-XII intact Psychiatric exam: Present: normal affect, normal mood Skin exam: Present: warm, dry, intact, normal color. Absent: rash Course Vital Signs 12/31/24 12/31/24 11:23 13:53 Temperature 98 F 98.0 F Pulse Rate 56 L 66 Respiratory 20 20 Rate Blood Pressure 102/55 111/60 O2 Sat by Pulse 98 99 Oximetry Medical Decision Making - Medical Decision Making This is a 49 year old male who presents to the emergency department for right hip pain after a fall. Was pt. sent in by a medical professional or institution? @ -No Did you speak to anyone other than the patient for history? @ -No Did you review nursing and triage notes? @ -Yes, and I agree, it is accurate with regards to the patient's symptoms. Were old charts reviewed? @ -No Differential Diagnosis? @ -Differential Musculoskeletal Muscular strain, contusion, ligament sprain, fracture, arthritis, septic arthritis, bursitis, cellulitis, muscle spasm, nerve compression, DVT, arterial occlusion, herpes zoster, electrolyte abnormality, tumor.... This is not meant to be in all inclusive list EKG interpreted by me (3pts min.)? @ -Not obtained X-rays interpreted by me (1pt min.)? @ -X-ray of the right hip and AP pelvis obtained. My interpretation identifies no acute fractures. CT interpreted by me (1pt min.)? @ -Not obtained U/S interpreted by me (1pt. min.)? @ -Not obtained What testing was considered but not performed? (CT, X-rays, U/S, labs)? Why? @ -None What meds were considered but not given? Why? @ -None Did you discuss the management of the patient with other professionals? @ -No Did you reconcile home meds? @ -No Was smoking cessation discussed for >3mins.? @ -No Was critical care preformed (if so, how long)? @ -No Were there social determinants of health that impacted care today? How? (Homelessness, low income, unemployed, alcoholism, drug addiction, transportation, low edu. Level, literacy, decrease access to med. care, fdc, rehab)? @ -No Was there de-escalation of care discussed even if they declined? (Discuss DNR or withdrawal of care, Hospice)? @ -No What co-morbidities impacted this encounter? (DM, HTN, Smoking, COPD, CAD, Cancer, CVA, Hep., AIDS, mental health diagnosis, sleep apnea, morbid obesity)? @ -Parkinson's Was patient admitted / discharged? @ -Discharged. X-ray of the right hip and AP pelvis obtained revealing no acute process. Patient declined the need for any pain medication. He was still able to ambulate without difficulty and maintained full range of motion. Symptoms likely related to a contusion. Advised ibuprofen and Tylenol as needed for any additional discomfort. Patient discharged home in stable condition. Case discussed with ED attending Dr. Silva. Return precautions reviewed in depth, the patient is instructed to return to the emergency department with any new, worsening, or concerning symptoms. Patient verbalized understanding. Undiagnosed new problem with uncertain prognosis? @ -None Drug Therapy requiring intensive monitoring for toxicity (Heparin, Nitro, Insulin, Cardizem)? @ -None Were any procedures done? @ -None Diagnosis/symptom? @ -Fall, right hip contusion Acute, or Chronic, or Acute on Chronic? @ -Acute Uncomplicated (without systemic symptoms) or Complicated (systemic symptoms)? @ -Uncomplicated Side effects of treatment? @ -None Exacerbation, Progression, or Severe Exacerbation] @ -Not applicable Poses a threat to life or bodily function? @ -No - Radiology Data Radiology results: report reviewed, image reviewed Disposition Clinical Impression: Fall, Contusion of right hip Disposition: HOME SELF-CARE Instructions (If sedation given, give patient instructions): Hip Contusion (ED) Additional Instructions: Return to the emergency department with any new, worsening, or concerning symptoms. Alternate with ibuprofen and Tylenol as needed for pain relief. Follow up with your primary care provider in 1-2 days. Is patient prescribed a controlled substance at d/c from ED?: No Referrals: Jose Enciso MD [Primary Care Provider] - 1-2 days Time of Disposition: 13:26
--- NOTE | 2024-12-31 13:01 | XR ---
EXAMINATION TYPE: XR Hip RT and AP Pelvis DATE OF EXAM: 12/31/2024 12:30 PM COMPARISON: None. CLINICAL INDICATION: Male, 49 years old with history of Fall, pain TECHNIQUE: 2 view(s) obtained right hip. Exam supplemented with AP pelvis FINDINGS: Femoral heads articulate with the acetabulum. Joint spaces are preserved. Symphysis pubis and sacroil iac joints are normal. No acute fractures or dislocations evident IMPRESSION: 1. . No acute posttraumatic changes AP pelvis [facility], Workstation: [facility], 12/31/2024 12:58 PM
[2024-12-31 13:57] VITALS: BP 111/60; PULSE 66; TEMP 98
== END 2024-12-31 14:00 | disposition home or self-care (01) ==
LOC: EC 10:51
DX: S70.01XA Contusion of right hip, initial encounter (principal); G20.A1 Parkinson's disease without dyskinesia, without mention of fluctuations; Z88.6 Allergy status to analgesic agent; Z86.73 Personal history of transient ischemic attack (TIA), and cerebral infarction without residual deficits; Z88.8 Allergy status to other drugs, medicaments and biological substances; W19.XXXA Unspecified fall, initial encounter
CPT/HCPCS: 73502; 99283